=== PATIENT | female | born 1930 | race Caucasian/White ===

== ENCOUNTER 2018-01-28 11:20 | Inpatient (IN) | payer MEDICARE, OTHER ==
[~2018-01-28 11:20] MED LIST: PROPOFOL 200 MG INJ
[2018-01-28 13:23] LABS: ADD MAN DIFF? NO
[2018-01-28 13:33] LABS: BASOPHILS % 0.6 % (0.0-2.0); EOSINOPHILS # 0.1 10^3/ul (0.0-0.5); EOSINOPHILS % 1.2 % (0.0-7.0); HEMATOCRIT 25.5 % (37.0-47.0); LYMPHOCYTES # 1.8 10^3/ul (0.8-2.9); LYMPHOCYTES % 27.5 % (15.0-51.0); MEAN CORPUSCULAR HEMOGLOBIN 30.1 pg (29.0-33.0); MEAN CORPUSCULAR HGB CONC 31.4 g/dl (32.0-37.0); MEAN CORPUSCULAR VOLUME 95.9 fl (82.0-101.0); MEAN PLATELET VOLUME 9.8 fl (7.4-10.4); MONOCYTE # 0.4 10^3/ul (0.3-0.9); MONOCYTES % 6.1 % (0.0-11.0); NEUTROPHIL # 4.1 10^3/ul (1.6-7.5); PLATELET COUNT 303 10^3/UL (140-415); RED BLOOD COUNT 2.66 10^6/ul (4.20-5.40)
[2018-01-28 13:33] LABS: WHITE BLOOD COUNT 6.4 10^3/ul (4.8-10.8)
[2018-01-28 13:34] LABS: POSITIVE DIFF @See below
[2018-01-28 13:38] LABS: HOLD TRANSMISSIONS 1
[2018-01-28 13:44] LABS: ANION GAP 16 (8-16); CARBON DIOXIDE 23 mmol/L (21-31); CHLORIDE 103 mmol/L (97-110); GLUCOSE 90 mg/dl (70-220)
[2018-01-28 13:45] LABS: ALANINE AMINOTRANSFERASE 26 IU/L (13-69); ALBUMIN 3.4 g/dl (3.3-4.9); ALBUMIN/GLOBULIN RATIO 0.94; ALKALINE PHOSPHATASE 134 IU/L (42-121); ASPARTATE AMINO TRANSFERASE 32 IU/L (15-46); BILIRUBIN,INDIRECT 0.1 mg/dl (0-1.1); BILIRUBIN,TOTAL 0.1 mg/dl (0.2-1.3); BLOOD UREA NITROGEN 26 mg/dl (7-20); CALCIUM 9.8 mg/dl (8.4-10.2); SODIUM 136 mmol/L (135-144)
[2018-01-28 13:48] LABS: POTASSIUM 6.3 mmol/L (3.5-5.1)
[2018-01-28 13:49] LABS: INR 0.99; PROTIME 13.2 Sec (11.9-14.9)
[2018-01-28] MEDS: INSULIN REGULAR, HUMAN 100 UNIT/1 ML 3ML VIAL IVP (14:00)
[2018-01-28] MEDS ORDERED: FENTAnyl 50 MCG/ML VIAL (14:15)
[2018-01-28] MEDS ORDERED: ROPIVACAINE 0.5 % 30 ML VIAL (14:15)
[2018-01-28] MEDS ORDERED: hydrALAzine 20 MG INJ (14:49)
[2018-01-28] MEDS ORDERED: PHENYLephrine (100 MCG/ML) 10ML SYG (15:10)
[2018-01-28] MEDS ORDERED: PHENYLephrine 10 MG INJ (15:10)
[2018-01-28] MEDS ORDERED: CEFAZOLIN 1 GM INJ (15:11)
[2018-01-28] MEDS ORDERED: DEXAMETHASONE 4 MG/ML 1 ML INJ (15:26)
[2018-01-28] MEDS ORDERED: ONDANSETRON 4 MG INJ (15:26)
[2018-01-28] MEDS ORDERED: METOCLOPRAMIDE 10 MG INJ (15:26)
[2018-01-28] MEDS ORDERED: DEXTROSE 50% 50 ML SYRINGE (15:39)
[2018-01-28] MEDS ORDERED: SODIUM CL BACTERIOSTATIC 30 ML INJ (15:39)
[2018-01-28] MEDS ORDERED: LABETALOL HCL 20MG INJ IV (16:00)
[2018-01-28] MEDS ORDERED: EPHEDrine SULFATE 50 MG/5 ML SYG IV (16:00)
[2018-01-28] MEDS ORDERED: morphine (1 MG/ML) 10ML SYRINGE IV (16:00)
[2018-01-28] MEDS ORDERED: FENTAnyl 50 MCG/ML VIAL IV ×2 (16:00)
[2018-01-28] MEDS ORDERED: hydrALAzine 20 MG INJ IV (16:00)
[2018-01-28] MEDS ORDERED: ONDANSETRON 4 MG INJ IV (16:00)
[2018-01-28 16:55] LABS: POTASSIUM 4.1 mmol/L (3.5-5.1)
[2018-01-28] MEDS ORDERED: DEXTROSE 50% 50 ML SYRINGE IV ×2 (17:30)
[2018-01-28] MEDS ORDERED: GLUCOSE GEL 15 GRAM TUBE PO ×2 (17:30)
[2018-01-28] MEDS ORDERED: GLUCAGON 1 MG INJ IM (17:30)
[2018-01-28] MEDS ORDERED: GLUCOSE GEL 15 GRAM TUBE BUCCAL (17:30)
[2018-01-28 18:58] LABS: HEMOGLOBIN A1C 5.2 % (0-5.9)
[2018-01-28] MEDS: LATANOPROST 0.005% 2.5 ML OPH BOTH EYES (23:00)
[2018-01-28] MEDS: INSULIN ASPART [NOVOLOG] 3 ML PEN SC ×2 (23:00)
[2018-01-28] MEDS: INSULIN GLARGINE [LANtus] 3 ML PEN SC (23:00)
[2018-01-28] MEDS ORDERED: NACL 0.9% 3 ML SYG IV ×2 (23:00)
[2018-01-28] MEDS: ATORVASTATIN 20 MG TAB PO (23:21)
[2018-01-28] MEDS: GABAPENTIN 100 MG CAP PO (23:21)
[2018-01-29] MEDS: ACCU-CHEK XX (02:00)
[2018-01-29] MEDS: INSULIN ASPART [NOVOLOG] 3 ML PEN SC ×4 (07:59→21:00)
[2018-01-29] MEDS ORDERED: INSULIN GLARGINE [LANtus] 3 ML PEN SC (08:00)
[2018-01-29] MEDS: INSULIN GLARGINE [LANtus] 3 ML PEN SC (08:02)
[2018-01-29 08:54] LABS: ANION GAP 14 (8-16); BLOOD UREA NITROGEN 20 mg/dl (7-20); CALCIUM 8.9 mg/dl (8.4-10.2); CARBON DIOXIDE 25 mmol/L (21-31); CHLORIDE 103 mmol/L (97-110); CREATININE 0.74 mg/dl (0.44-1.00); GLUCOSE 83 mg/dl (70-220); MAGNESIUM 1.8 mg/dl (1.7-2.5); PHOSPHORUS 3.3 mg/dl (2.5-4.9); POTASSIUM 4.6 mmol/L (3.5-5.1); SODIUM 137 mmol/L (135-144)
[2018-01-29] MEDS ORDERED: NON-FORMULARY/PATIENT OWN MED (Clopidogrel Bisulfate (Clopidogrel) 75 MG) PO (09:00)
[2018-01-29] MEDS: ASPIRIN 325 MG TAB GTB (09:11)
[2018-01-29] MEDS: CLOPIDOGREL 75 MG TAB PO (09:11)
[2018-01-29] MEDS: PANTOPRAZOLE (EC) 40 MG TAB PO (09:12)
[2018-01-29] MEDS: LEVOTHYROXINE 75 MCG TAB PO (09:12)
[2018-01-29 10:07] LABS: THYROID STIMULATING HORMONE 0.385 MIU/L (0.465-4.680)
[2018-01-29] MEDS: HYDROCODONE/APAP (5/325) TAB PO (12:15)
[2018-01-29 12:41] LABS: T4 (THYROXINE) 6.7 ug/dl (5.5-11.0)
[2018-01-29 14:42] LABS: FREE T4 (FREE THYROXINE) 1.24 ng/dl (0.85-1.93)
[2018-01-29] MEDS: ATORVASTATIN 20 MG TAB PO (21:27)
[2018-01-29] MEDS: GABAPENTIN 100 MG CAP PO (21:27)
[2018-01-29] MEDS: LATANOPROST 0.005% 2.5 ML OPH BOTH EYES (23:37)
[2018-01-30] MEDS: ACCU-CHEK XX (02:00)
[2018-01-30] MEDS: INSULIN REGULAR, HUMAN 100 UNIT/1 ML 3ML VIAL IVP (07:41)
[2018-01-30] MEDS: INSULIN ASPART [NOVOLOG] 3 ML PEN SC ×4 (07:41→20:54)
[2018-01-30] MEDS: LEVOTHYROXINE 75 MCG TAB PO (08:16)
[2018-01-30] MEDS: ASPIRIN 325 MG TAB GTB (08:16)
[2018-01-30] MEDS: CLOPIDOGREL 75 MG TAB PO (08:17)
[2018-01-30] MEDS: PANTOPRAZOLE (EC) 40 MG TAB PO (08:17)
[2018-01-30] MEDS: INSULIN GLARGINE [LANtus] 3 ML PEN SC (08:21)
[2018-01-30] MEDS: HYDROCODONE/APAP (5/325) TAB PO ×2 (09:22→19:05)
[2018-01-30] MEDS: COLLAGENASE 5 GM (UD JAR) TOP ×2 (15:40→17:14)
[2018-01-30] MEDS: GABAPENTIN 100 MG CAP PO (20:50)
[2018-01-30] MEDS: LATANOPROST 0.005% 2.5 ML OPH BOTH EYES (20:50)
[2018-01-30] MEDS: ATORVASTATIN 20 MG TAB PO (20:50)
[2018-01-31] MEDS: ACCU-CHEK XX (02:00)
[2018-01-31] MEDS: INSULIN ASPART [NOVOLOG] 3 ML PEN SC ×4 (08:04→20:23)
[2018-01-31] MEDS: ASPIRIN 325 MG TAB GTB (08:46)
[2018-01-31] MEDS: CLOPIDOGREL 75 MG TAB PO (08:46)
[2018-01-31] MEDS: INSULIN GLARGINE [LANtus] 3 ML PEN SC (08:55)
[2018-01-31] MEDS: PANTOPRAZOLE (EC) 40 MG TAB PO (09:24)
[2018-01-31] MEDS: LEVOTHYROXINE 75 MCG TAB PO (09:24)
[2018-01-31] MEDS: SENNA TAB PO (18:37)
[2018-01-31] MEDS: HYDROCODONE/APAP (5/325) TAB PO ×2 (18:38→23:43)
[2018-01-31] MEDS: ATORVASTATIN 20 MG TAB PO (20:24)
[2018-01-31] MEDS: LATANOPROST 0.005% 2.5 ML OPH BOTH EYES (20:24)
[2018-01-31] MEDS: GABAPENTIN 100 MG CAP PO (20:25)
[2018-01-31] MEDS: POLYETHYLENE GLYCOL 17 GM PACKET PO (20:25)
[2018-02-01] MEDS: ACCU-CHEK XX (01:52)
[2018-02-01] MEDS: INSULIN ASPART [NOVOLOG] 3 ML PEN SC ×4 (08:15→21:34)
[2018-02-01] MEDS: PANTOPRAZOLE (EC) 40 MG TAB PO (08:17)
[2018-02-01] MEDS: ASPIRIN 325 MG TAB GTB (08:17)
[2018-02-01] MEDS: LEVOTHYROXINE 75 MCG TAB PO (08:17)
[2018-02-01] MEDS: CLOPIDOGREL 75 MG TAB PO (08:18)
[2018-02-01] MEDS: POLYETHYLENE GLYCOL 17 GM PACKET PO ×2 (08:18→21:00)
[2018-02-01] MEDS: COLLAGENASE 5 GM (UD JAR) TOP (08:19)
[2018-02-01] MEDS: INSULIN GLARGINE [LANtus] 3 ML PEN SC (08:56)
[2018-02-01] MEDS: HYDROCODONE/APAP (5/325) TAB PO (09:17)
[2018-02-01 12:05] LABS: ADD MAN DIFF? NO
[2018-02-01 12:07] LABS: WHITE BLOOD COUNT 5.7 10^3/ul (4.8-10.8)
[2018-02-01 12:07] LABS: ABNORMAL IP MESSAGE 1; BASOPHILS % 0.4 % (0.0-2.0); EOSINOPHILS # 0.1 10^3/ul (0.0-0.5); EOSINOPHILS % 2.3 % (0.0-7.0); HEMATOCRIT 18.6 % (37.0-47.0); LYMPHOCYTES # 1.6 10^3/ul (0.8-2.9); LYMPHOCYTES % 27.4 % (15.0-51.0); MEAN CORPUSCULAR HEMOGLOBIN 29.7 pg (29.0-33.0); MEAN CORPUSCULAR HGB CONC 31.2 g/dl (32.0-37.0); MEAN CORPUSCULAR VOLUME 95.4 fl (82.0-101.0); MEAN PLATELET VOLUME 9.8 fl (7.4-10.4); MONOCYTE # 0.4 10^3/ul (0.3-0.9); MONOCYTES % 7.7 % (0.0-11.0); NEUTROPHIL # 3.5 10^3/ul (1.6-7.5); NEUTROPHILS % 61.8 % (39.0-77.0); PLATELET COUNT 230 10^3/UL (140-415); RED BLOOD COUNT 1.95 10^6/ul (4.20-5.40); RED CELL DISTRIBUTION WIDTH 14.6 % (11.5-14.5)
[2018-02-01 12:21] LABS: HEMOGLOBIN 5.8 g/dl (12.0-16.0); POSITIVE DIFF @See below
[2018-02-01 15:24] LABS: HEMATOCRIT 20.4 % (37.0-47.0)
[2018-02-01] MEDS: NA PHOSPHATE/BIPHOS 133 ML ENEMA PR (15:27)
[2018-02-01 15:35] LABS: HEMOGLOBIN 6.3 g/dl (12.0-16.0)
[2018-02-01 21:03] LABS: HEMATOCRIT 20.7 % (37.0-47.0)
[2018-02-01 21:09] LABS: HEMOGLOBIN 6.5 g/dl (12.0-16.0)
[2018-02-01] MEDS: ATORVASTATIN 20 MG TAB PO (21:29)
[2018-02-01] MEDS: GABAPENTIN 100 MG CAP PO (21:30)
[2018-02-01] MEDS: LATANOPROST 0.005% 2.5 ML OPH BOTH EYES (21:46)
[2018-02-01 22:34] LABS: IMMEDIATE SPIN CROSSMATCH 1 1
[2018-02-01] MEDS: ACETAMINOPHEN 325 MG TAB PO (22:49)
[2018-02-02] MEDS: SOD CHLORIDE 0.9% 250 ML IV* (00:32)
[2018-02-02] MEDS: ACCU-CHEK XX (02:05)
[2018-02-02 06:44] LABS: ADD MAN DIFF? NO
[2018-02-02 06:50] LABS: WHITE BLOOD COUNT 5.9 10^3/ul (4.8-10.8)
[2018-02-02 06:50] LABS: BASOPHILS % 0.7 % (0.0-2.0); EOSINOPHILS # 0.2 10^3/ul (0.0-0.5); EOSINOPHILS % 2.7 % (0.0-7.0); LYMPHOCYTES # 1.6 10^3/ul (0.8-2.9); LYMPHOCYTES % 27.3 % (15.0-51.0); MEAN CORPUSCULAR HEMOGLOBIN 32.1 pg (29.0-33.0); MEAN CORPUSCULAR HGB CONC 33.3 g/dl (32.0-37.0); MEAN CORPUSCULAR VOLUME 96.4 fl (82.0-101.0); MEAN PLATELET VOLUME 10.1 fl (7.4-10.4); MONOCYTE # 0.5 10^3/ul (0.3-0.9); MONOCYTES % 9.2 % (0.0-11.0); NEUTROPHIL # 3.5 10^3/ul (1.6-7.5); NEUTROPHILS % 59.8 % (39.0-77.0); PLATELET COUNT 239 10^3/UL (140-415); RED CELL DISTRIBUTION WIDTH 14.5 % (11.5-14.5)
[2018-02-02 07:02] LABS: POSITIVE DIFF @See below
[2018-02-02 07:18] LABS: OCCULT BLOOD STOOL NEGATIVE (NEGATIVE)
[2018-02-02] MEDS: INSULIN GLARGINE [LANtus] 3 ML PEN SC (08:05)
[2018-02-02] MEDS: INSULIN ASPART [NOVOLOG] 3 ML PEN SC ×4 (08:15→21:26)
[2018-02-02] MEDS: LEVOTHYROXINE 75 MCG TAB PO (08:18)
[2018-02-02] MEDS: PANTOPRAZOLE (EC) 40 MG TAB PO (08:18)
[2018-02-02] MEDS: COLLAGENASE 5 GM (UD JAR) TOP (08:51)
[2018-02-02] MEDS: hydrALAzine 20 MG INJ IV (09:33)
[2018-02-02] MEDS: HYDROCODONE/APAP (5/325) TAB PO ×2 (09:48→21:15)
[2018-02-02] MEDS: POLYETHYLENE GLYCOL 17 GM PACKET PO ×2 (10:07→21:19)
[2018-02-02 10:42] LABS: HEMOGLOBIN 9.9 g/dl (12.0-16.0)
[2018-02-02 15:15] LABS: HEMATOCRIT 29.4 % (37.0-47.0); HEMOGLOBIN 9.5 g/dl (12.0-16.0)
[2018-02-02] MEDS: GABAPENTIN 100 MG CAP PO (21:13)
[2018-02-02] MEDS: ATORVASTATIN 20 MG TAB PO (21:13)
[2018-02-02] MEDS: LATANOPROST 0.005% 2.5 ML OPH BOTH EYES (21:13)
[2018-02-03] MEDS: ACCU-CHEK XX (02:30)
[2018-02-03] MEDS: INSULIN ASPART [NOVOLOG] 3 ML PEN SC ×2 (07:59→12:15)
[2018-02-03] MEDS: POLYETHYLENE GLYCOL 17 GM PACKET PO (08:07)
[2018-02-03] MEDS: PANTOPRAZOLE (EC) 40 MG TAB PO (08:08)
[2018-02-03] MEDS: HYDROCODONE/APAP (5/325) TAB PO ×2 (08:08→16:28)
[2018-02-03] MEDS: COLLAGENASE 5 GM (UD JAR) TOP (08:09)
[2018-02-03] MEDS: LEVOTHYROXINE 75 MCG TAB PO (08:09)
[2018-02-03] MEDS: INSULIN GLARGINE [LANtus] 3 ML PEN SC (08:13)
[2018-02-03] MEDS ORDERED: VITAMIN A & D 5 GM OINT PACKET TOP (08:21)
== END 2018-02-03 16:40 | disposition home health service (06) | DRG 255 ==
LOC: SDS 11:20 → MS2 01-29 18:45 → MS4 21:15 → MS2 01-29 20:45 → SDS 23:46 → MS4 23:10
PROVIDERS: Internal Medicine
PROC: 0Y6Q0Z0 Detachment at Left 1st Toe, Complete, Open Approach (ICD-10-PCS; principal; 2018-01-28 13:30)
PROC: 0Y6W0Z0 Detachment at Left 4th Toe, Complete, Open Approach (ICD-10-PCS; 2018-01-28 13:30)
PROC: 0Y6U0Z0 Detachment at Left 3rd Toe, Complete, Open Approach (ICD-10-PCS; 2018-01-28 13:30)
PROC: 0Y6S0Z0 Detachment at Left 2nd Toe, Complete, Open Approach (ICD-10-PCS; 2018-01-28 13:30)
PROC: 30233N1 Transfusion of Nonautologous Red Blood Cells into Peripheral Vein, Percutaneous Approach (ICD-10-PCS; 2018-01-28 14:35)
DX: E11.52 Type 2 diabetes mellitus with diabetic peripheral angiopathy with gangrene (principal); L89.153 Pressure ulcer of sacral region, stage 3; I96 Gangrene, not elsewhere classified; E44.0 Moderate protein-calorie malnutrition; Z68.1 Body mass index [BMI] 19.9 or less, adult; I10 Essential (primary) hypertension; E03.9 Hypothyroidism, unspecified; K21.9 Gastro-esophageal reflux disease without esophagitis; H40.9 Unspecified glaucoma; D64.9 Anemia, unspecified; E78.00 Pure hypercholesterolemia, unspecified; E87.5 Hyperkalemia
CPT/HCPCS: 36430; 71045; 80048; 80053; 82270; 82962; 83036; 83735; 84100; 84132; 84436; 84439; 84443; 85014; 85018; 85025; 85610; 85730; 86850; 86900; 86901; 86920; 88305; 88311; 93005; 97110; 97162; 97530

== ENCOUNTER 2018-02-25 16:28 | Inpatient (IN) | payer MEDICARE, OTHER ==
[2018-02-25 20:20] LABS: ADD UMIC YES; UR ASCORBIC ACID 40 mg/dL (NEGATIVE); UR BACTERIA MODERATE /HPF (NONE SEEN); UR BILIRUBIN (Dip) NEGATIVE (NEGATIVE); UR BLOOD (Dip) NEGATIVE (NEGATIVE); UR CLARITY CLOUDY (CLEAR); UR COLOR YELLOW (YELLOW); UR GLUCOSE (Dip) NEGATIVE (NEGATIVE); UR KETONES (Dip) NEGATIVE (NEGATIVE); UR LEUKOCYTE ESTERASE (Dip) 3+ Leu/ul (NEGATIVE); UR NITRITE (Dip) POSITIVE (NEGATIVE); UR RBC 1 /HPF (0-5); UR SPECIFIC GRAVITY (Dip) 1.009 (1.003-1.030); UR TOTAL PROTEIN (Dip) NEGATIVE (NEGATIVE); UR UROBILINOGEN (Dip) NEGATIVE (NEGATIVE); UR WBC > 182 /HPF (0-5)
[2018-02-25] MEDS: NA PHOSPHATE/BIPHOS 133 ML ENEMA PR (20:26)
[2018-02-25] MEDS: SOD CHLORIDE 0.9% 500 ML IV (20:26)
[2018-02-25 20:31] LABS: ADD MAN DIFF? NO
[2018-02-25 20:32] LABS: BASOPHILS % 0.4 % (0.0-2.0); EOSINOPHILS # 0.1 10^3/ul (0.0-0.5); EOSINOPHILS % 1.4 % (0.0-7.0); HEMATOCRIT 27.8 % (37.0-47.0); HEMOGLOBIN 8.6 g/dl (12.0-16.0); LYMPHOCYTES # 1.7 10^3/ul (0.8-2.9); LYMPHOCYTES % 19.4 % (15.0-51.0); MEAN CORPUSCULAR HEMOGLOBIN 29.4 pg (29.0-33.0); MEAN CORPUSCULAR HGB CONC 30.9 g/dl (32.0-37.0); MEAN CORPUSCULAR VOLUME 94.9 fl (82.0-101.0); MEAN PLATELET VOLUME 9.2 fl (7.4-10.4); MONOCYTE # 0.7 10^3/ul (0.3-0.9); MONOCYTES % 7.2 % (0.0-11.0); NEUTROPHIL # 6.4 10^3/ul (1.6-7.5); PLATELET COUNT 319 10^3/UL (140-415); RED BLOOD COUNT 2.93 10^6/ul (4.20-5.40); RED CELL DISTRIBUTION WIDTH 13.6 % (11.5-14.5)
[2018-02-25 20:51] LABS: ALANINE AMINOTRANSFERASE 25 IU/L (13-69); ALBUMIN 3.4 g/dl (3.3-4.9); ALKALINE PHOSPHATASE 107 IU/L (42-121); ANION GAP 12 (8-16); ASPARTATE AMINO TRANSFERASE 38 IU/L (15-46); BILIRUBIN,INDIRECT 0.1 mg/dl (0-1.1); BILIRUBIN,TOTAL 0.1 mg/dl (0.2-1.3); BLOOD UREA NITROGEN 30 mg/dl (7-20); CALCIUM 9.3 mg/dl (8.4-10.2); CARBON DIOXIDE 26 mmol/L (21-31); CHLORIDE 95 mmol/L (97-110); GLUCOSE 109 mg/dl (70-220); POTASSIUM 5.1 mmol/L (3.5-5.1); SODIUM 128 mmol/L (135-144); TOTAL PROTEIN 7.6 g/dl (6.1-8.1)
[2018-02-25] MEDS ORDERED: ONDANSETRON 4 MG INJ IV (22:00)
[2018-02-25] MEDS ORDERED: ACETAMINOPHEN 325 MG TAB PO (22:00)
[2018-02-25] MEDS: CEFTRIAXONE 1 GM/50 ML (PMX) 50 ML IVPB (22:38)
[2018-02-26] MEDS ORDERED: GLUCAGON 1 MG INJ IM (01:30)
[2018-02-26] MEDS ORDERED: ONDANSETRON 4 MG INJ IV (01:30)
[2018-02-26] MEDS ORDERED: GLUCOSE GEL 15 GRAM TUBE BUCCAL (01:30)
[2018-02-26] MEDS ORDERED: GLUCOSE GEL 15 GRAM TUBE PO ×2 (01:30)
[2018-02-26] MEDS ORDERED: DEXTROSE 50% 50 ML SYRINGE IV ×2 (01:30)
[2018-02-26] MEDS: HYDROCODONE/APAP (5/325) TAB PO ×2 (01:51→18:42)
[2018-02-26] MEDS: DEXTROSE 5%-0.45% NACL 1,000 ML IV (01:57)
[2018-02-26] MEDS: DEXTROSE 5%-0.9% NACL 1,000 ML IV (03:10)
[2018-02-26] MEDS ORDERED: PENDING SANTYL ORDER FOR WOUND CARE XX (03:30)
[2018-02-26 05:00] LABS: ADD MAN DIFF? NO
[2018-02-26] MEDS: INSULIN ASPART [NOVOLOG] 3 ML PEN SC ×5 (05:00→21:00)
[2018-02-26 05:03] LABS: WHITE BLOOD COUNT 6.8 10^3/ul (4.8-10.8)
[2018-02-26 05:03] LABS: BASOPHILS % 0.4 % (0.0-2.0); EOSINOPHILS % 0.6 % (0.0-7.0); HEMATOCRIT 27.5 % (37.0-47.0); HEMOGLOBIN 8.6 g/dl (12.0-16.0); LYMPHOCYTES # 1.4 10^3/ul (0.8-2.9); LYMPHOCYTES % 20.4 % (15.0-51.0); MEAN CORPUSCULAR HEMOGLOBIN 30.2 pg (29.0-33.0); MEAN CORPUSCULAR HGB CONC 31.3 g/dl (32.0-37.0); MEAN CORPUSCULAR VOLUME 96.5 fl (82.0-101.0); MEAN PLATELET VOLUME 9.5 fl (7.4-10.4); MONOCYTE # 0.5 10^3/ul (0.3-0.9); MONOCYTES % 7.6 % (0.0-11.0); NEUTROPHIL # 4.8 10^3/ul (1.6-7.5); NEUTROPHILS % 70.4 % (39.0-77.0); PLATELET COUNT 271 10^3/UL (140-415); RED BLOOD COUNT 2.85 10^6/ul (4.20-5.40); RED CELL DISTRIBUTION WIDTH 13.7 % (11.5-14.5)
[2018-02-26 05:28] LABS: IRON 37 ug/dl (35-150)
[2018-02-26 05:31] LABS: ALANINE AMINOTRANSFERASE 24 IU/L (13-69); ALBUMIN 2.9 g/dl (3.3-4.9); ALBUMIN/GLOBULIN RATIO 0.82; ALKALINE PHOSPHATASE 86 IU/L (42-121); ANION GAP 10 (8-16); ASPARTATE AMINO TRANSFERASE 33 IU/L (15-46); BILIRUBIN,INDIRECT 0.2 mg/dl (0-1.1); BILIRUBIN,TOTAL 0.2 mg/dl (0.2-1.3); BLOOD UREA NITROGEN 24 mg/dl (7-20); CALCIUM 8.6 mg/dl (8.4-10.2); CARBON DIOXIDE 26 mmol/L (21-31); CHLORIDE 105 mmol/L (97-110); GLUCOSE 111 mg/dl (70-220); PHOSPHORUS 4.6 mg/dl (2.5-4.9); POTASSIUM 4.2 mmol/L (3.5-5.1); SODIUM 137 mmol/L (135-144); TOTAL PROTEIN 6.4 g/dl (6.1-8.1)
[2018-02-26 05:38] LABS: % IRON SATURATION 14 % SAT (22-52); TOTAL IRON BINDING CAPACITY 266 ug/dl (241-421)
[2018-02-26 05:51] LABS: THYROID STIMULATING HORMONE 0.314 MIU/L (0.465-4.680)
[2018-02-26 05:55] LABS: FERRITIN 46.8 ng/ml (11.1-264.0)
[2018-02-26] MEDS: PANTOPRAZOLE (EC) 40 MG TAB PO (06:12)
[2018-02-26] MEDS: LEVOTHYROXINE 75 MCG TAB PO (06:16)
[2018-02-26] MEDS ORDERED: INSULIN ASPART [NOVOLOG] 3 ML PEN SC (07:50)
[2018-02-26 09:10] LABS: OCCULT BLOOD STOOL NEGATIVE (NEGATIVE)
[2018-02-26 16:52] LABS: T4 (THYROXINE) 6.8 ug/dl (5.5-11.0)
[2018-02-26 16:53] LABS: FREE T4 (FREE THYROXINE) 1.58 ng/dl (0.85-1.93)
[2018-02-26 17:06] LABS: THYROID STIMULATING HORMONE 0.248 MIU/L (0.465-4.680)
[2018-02-26] MEDS: SENNA TAB PO (21:11)
[2018-02-26] MEDS: CEFTRIAXONE 1 GM/50 ML (PMX) 50 ML IVPB (21:11)
[2018-02-26] MEDS: ATORVASTATIN 20 MG TAB PO (21:11)
[2018-02-26] MEDS: LATANOPROST 0.005% 2.5 ML OPH BOTH EYES (21:17)
[2018-02-27] MEDS: HYDROCODONE/APAP (5/325) TAB PO ×2 (02:18→08:29)
[2018-02-27 05:40] LABS: ADD MAN DIFF? NO; BASOPHILS % 0.5 % (0.0-2.0); EOSINOPHILS # 0.1 10^3/ul (0.0-0.5); HEMATOCRIT 24.7 % (37.0-47.0); HEMOGLOBIN 7.6 g/dl (12.0-16.0); LYMPHOCYTES # 1.4 10^3/ul (0.8-2.9); LYMPHOCYTES % 22.6 % (15.0-51.0); MEAN CORPUSCULAR HEMOGLOBIN 29.6 pg (29.0-33.0); MEAN CORPUSCULAR HGB CONC 30.8 g/dl (32.0-37.0); MEAN CORPUSCULAR VOLUME 96.1 fl (82.0-101.0); MEAN PLATELET VOLUME 9.7 fl (7.4-10.4); MONOCYTE # 0.5 10^3/ul (0.3-0.9); MONOCYTES % 8.3 % (0.0-11.0); NEUTROPHILS % 66.1 % (39.0-77.0); PLATELET COUNT 243 10^3/UL (140-415); RED BLOOD COUNT 2.57 10^6/ul (4.20-5.40)
[2018-02-27] MEDS: PANTOPRAZOLE (EC) 40 MG TAB PO (06:17)
[2018-02-27] MEDS: LEVOTHYROXINE 75 MCG TAB PO (06:17)
[2018-02-27 06:19] LABS: ANION GAP 8 (8-16); BLOOD UREA NITROGEN 15 mg/dl (7-20); CALCIUM 8.5 mg/dl (8.4-10.2); CARBON DIOXIDE 23 mmol/L (21-31); CHLORIDE 110 mmol/L (97-110); CREATININE 0.65 mg/dl (0.44-1.00); GLUCOSE 96 mg/dl (70-220); MAGNESIUM 1.7 mg/dl (1.7-2.5); PHOSPHORUS 3.1 mg/dl (2.5-4.9); POTASSIUM 4.1 mmol/L (3.5-5.1); SODIUM 137 mmol/L (135-144)
[2018-02-27] MEDS: INSULIN ASPART [NOVOLOG] 3 ML PEN SC ×4 (07:50→20:55)
[2018-02-27] MEDS: BALSAM PERU/CASTOR OIL 60 GM TUBE TOP (08:26)
[2018-02-27] MEDS: COLLAGENASE 5 GM (UD JAR) TOP (08:26)
[2018-02-27] MEDS: LATANOPROST 0.005% 2.5 ML OPH BOTH EYES (20:54)
[2018-02-27] MEDS: NITROFURANTOIN (SR) 100 MG CAP PO (20:54)
[2018-02-27] MEDS: ATORVASTATIN 20 MG TAB PO (20:54)
[2018-02-27] MEDS: SENNA TAB PO (20:54)
[2018-02-28] MEDS: LEVOTHYROXINE 75 MCG TAB PO (05:31)
[2018-02-28] MEDS: PANTOPRAZOLE (EC) 40 MG TAB PO (05:31)
[2018-02-28] MEDS: INSULIN ASPART [NOVOLOG] 3 ML PEN SC ×4 (07:50→21:00)
[2018-02-28] MEDS: NITROFURANTOIN (SR) 100 MG CAP PO ×2 (08:04→21:10)
[2018-02-28] MEDS: BALSAM PERU/CASTOR OIL 60 GM TUBE TOP (08:05)
[2018-02-28] MEDS: COLLAGENASE 5 GM (UD JAR) TOP (08:05)
[2018-02-28 14:29] LABS: HEMATOCRIT 28.3 % (37.0-47.0)
[2018-02-28] MEDS: HYDROCODONE/APAP (5/325) TAB PO ×2 (14:58→21:33)
[2018-02-28] MEDS: SOD CHLORIDE 0.45% 1,000 ML IV (17:08)
[2018-02-28] MEDS: CEFOTAXIME 2 GM/50 ML (PMX) 50 ML IVPB (18:11)
[2018-02-28] MEDS: ATORVASTATIN 20 MG TAB PO (21:10)
[2018-02-28] MEDS: SENNA TAB PO (21:11)
[2018-02-28] MEDS: LATANOPROST 0.005% 2.5 ML OPH BOTH EYES (21:32)
[2018-03-01] MEDS: CEFOTAXIME 2 GM/50 ML (PMX) 50 ML IVPB ×3 (00:31→15:25)
[2018-03-01] MEDS: PANTOPRAZOLE (EC) 40 MG TAB PO (05:47)
[2018-03-01] MEDS: LEVOTHYROXINE 75 MCG TAB PO (05:47)
[2018-03-01] MEDS: SOD CHLORIDE 0.45% 1,000 ML IV ×2 (07:18→12:40)
[2018-03-01] MEDS: INSULIN ASPART [NOVOLOG] 3 ML PEN SC ×2 (07:50→12:43)
[2018-03-01] MEDS: NITROFURANTOIN (SR) 100 MG CAP PO (09:25)
[2018-03-01] MEDS: COLLAGENASE 5 GM (UD JAR) TOP (09:26)
[2018-03-01] MEDS: BALSAM PERU/CASTOR OIL 60 GM TUBE TOP (09:26)
[2018-03-01] MEDS: HYDROCODONE/APAP (5/325) TAB PO (14:47)
== END 2018-03-01 17:00 | disposition home or self-care (01) | DRG 673 ==
LOC: E/R 16:28 → MS1 21:35
PROC: 0JBR0ZZ Excision of Left Foot Subcutaneous Tissue and Fascia, Open Approach (ICD-10-PCS; principal; 2018-02-25)
DX: N30.00 Acute cystitis without hematuria (principal); G93.40 Encephalopathy, unspecified; E87.1 Hypo-osmolality and hyponatremia; E86.0 Dehydration; D64.9 Anemia, unspecified; E11.9 Type 2 diabetes mellitus without complications; E03.9 Hypothyroidism, unspecified; E78.5 Hyperlipidemia, unspecified; I69.320 Aphasia following cerebral infarction; K59.00 Constipation, unspecified; I10 Essential (primary) hypertension; I25.10 Atherosclerotic heart disease of native coronary artery without angina pectoris; K21.9 Gastro-esophageal reflux disease without esophagitis; Z79.4 Long term (current) use of insulin; Z79.82 Long term (current) use of aspirin; Z95.5 Presence of coronary angioplasty implant and graft
CPT/HCPCS: 11042; 11045; 36415; 70450; 80048; 80053; 81001; 82270; 82728; 82962; 83540; 83735; 84100; 84436; 84439; 84443; 85014; 85018; 85025; 87086; 92610; 97163; 97606; 99285-25

== ENCOUNTER 2018-05-20 16:44 | Inpatient (IN) | payer MEDICARE, OTHER ==
[2018-05-20 19:19] LABS: WHITE BLOOD COUNT 30.7 10^3/ul (4.8-10.8)
[2018-05-20 19:19] LABS: ABNORMAL IP MESSAGE 1; MEAN CORPUSCULAR HEMOGLOBIN 28.8 pg (29.0-33.0); MEAN CORPUSCULAR HGB CONC 30.9 g/dl (32.0-37.0); MEAN CORPUSCULAR VOLUME 93.2 fl (82.0-101.0); MEAN PLATELET VOLUME 9.7 fl (7.4-10.4); PLATELET COUNT 263 10^3/UL (140-415); RED BLOOD COUNT 2.36 10^6/ul (4.20-5.40); RED CELL DISTRIBUTION WIDTH 17.6 % (11.5-14.5)
[2018-05-20 19:25] LABS: HEMOGLOBIN 6.8 g/dl (12.0-16.0)
[2018-05-20] MEDS: CEFTRIAXONE 1 GM/50 ML (PMX) 50 ML IVPB (19:25)
[2018-05-20] MEDS: PANTOPRAZOLE 40 MG INJ IV (19:25)
[2018-05-20 19:26] LABS: ADD MAN DIFF? YES; POSITIVE DIFF @See below
[2018-05-20] MEDS: SODIUM CHLORIDE 0.9% 1L BAG IV* (19:26)
[2018-05-20 19:30] LABS: PATH REVIEW? YES
[2018-05-20] MEDS ORDERED: VANCOMYCIN 1 GM (PMX) 250 ML IVPB (19:30)
[2018-05-20 19:38] LABS: ALANINE AMINOTRANSFERASE 37 IU/L (13-69); ALBUMIN 2.7 g/dl (3.3-4.9); ALBUMIN/GLOBULIN RATIO 0.65; ALKALINE PHOSPHATASE 106 IU/L (42-121); ASPARTATE AMINO TRANSFERASE 63 IU/L (15-46); BILIRUBIN,INDIRECT 0.5 mg/dl (0-1.1); BILIRUBIN,TOTAL 0.5 mg/dl (0.2-1.3); BLOOD UREA NITROGEN 36 mg/dl (7-20); CALCIUM 9.4 mg/dl (8.4-10.2); CARBON DIOXIDE 28 mmol/L (21-31); CHLORIDE 99 mmol/L (97-110); CREATININE 0.74 mg/dl (0.44-1.00); GLUCOSE 162 mg/dl (70-220); LIPASE 10 U/L (23-300); POTASSIUM 4.9 mmol/L (3.5-5.1); SODIUM 132 mmol/L (135-144); TOTAL PROTEIN 6.8 g/dl (6.1-8.1)
[2018-05-20 19:49] LABS: TROPONIN-I < 0.012 ng/ml (0.000-0.120)
[2018-05-20 19:54] LABS: INR 1.07; PT RATIO 1.1
[2018-05-20 19:55] LABS: PARTIAL THROMBOPLASTIN TIME 34.6 Sec (23.0-35.0)
[2018-05-20] MEDS ORDERED: ONDANSETRON 4 MG INJ IV (20:30)
[2018-05-20] MEDS ORDERED: ACETAMINOPHEN 325 MG TAB PO (20:30)
[2018-05-20] MEDS ORDERED: NACL 0.9% 3 ML SYG IV (20:30)
[2018-05-20] MEDS ORDERED: VANCOMYCIN IV PER PHARMACY XX (20:30)
[2018-05-20 20:36] LABS: IMMEDIATE SPIN CROSSMATCH 1 1
[2018-05-20 20:45] LABS: ANISOCYTOSIS 1+ (0-0); BAND NEUTROPHILS #M 12.2 10^3/ul (0.0-0.6); BAND NEUTROPHILS % (M) 40 % (0-4); LYMPHOCYTES #M 0.9 10^3/ul (0.8-2.9); LYMPHOCYTES % (M) 3 % (15-51); MONOCYTE #M 0.3 10^3/ul (0.3-0.9); MONOCYTES % (M) 1 % (0-11); PLATELET MORPHOLOGY COMMENT @See below; POLYCHROMASIA 1+ (0-0); SEG NEUT #M 20.9 10^3/ul (1.6-7.5); SEGMENTED NEUTROPHILS (M) % 56 % (39-77); SMUDGE%M 5 % (0-0)
[2018-05-20] MEDS: PIPER-TAZO 3.375 GM IV (PMX) 100 ML IVPB (21:00)
[2018-05-20] MEDS: SOD CHLORIDE 0.9% 500 ML IV (21:01)
[2018-05-20] MEDS: SOD CHLORIDE 0.9% 250 ML IV (22:42)
[2018-05-20 23:17] LABS: LACTIC ACID 2.8 mmol/L (0.5-2.0)
[2018-05-20] MEDS: VANCOMYCIN 750 MG in SOD CHLORIDE 0.9% 150 ML IVPB (23:37)
[2018-05-20] MEDS: SOD CHLORIDE 0.9% 950 ML IV (23:37)
[2018-05-21] MEDS ORDERED: PENDING SANTYL ORDER FOR WOUND CARE XX (02:00)
[2018-05-21] MEDS: PIPER-TAZO 3.375 GM IV (PMX) 100 ML IVPB ×4 (02:00→17:42)
[2018-05-21] MEDS: HYDROCODONE/APAP (5/325) TAB PO ×3 (04:30→21:50)
[2018-05-21] MEDS: SOD CHLORIDE 0.9% 1,000 ML IV ×2 (04:36→21:28)
[2018-05-21] MEDS: LEVOTHYROXINE 100 MCG VIAL IV (05:33)
[2018-05-21] MEDS: PANTOPRAZOLE 40 MG INJ IV ×2 (05:33→17:41)
[2018-05-21 07:57] LABS: ALANINE AMINOTRANSFERASE 41 IU/L (13-69); ALBUMIN 2.2 g/dl (3.3-4.9); ALBUMIN/GLOBULIN RATIO 0.66; ALKALINE PHOSPHATASE 87 IU/L (42-121); ANION GAP 6 (5-13); ASPARTATE AMINO TRANSFERASE 46 IU/L (15-46); BILIRUBIN,INDIRECT 0.8 mg/dl (0-1.1); BILIRUBIN,TOTAL 0.8 mg/dl (0.2-1.3); BLOOD UREA NITROGEN 26 mg/dl (7-20); CARBON DIOXIDE 22 mmol/L (21-31); CHLORIDE 111 mmol/L (97-110); CREATININE 0.57 mg/dl (0.44-1.00); GLUCOSE 97 mg/dl (70-220); MAGNESIUM 1.8 mg/dl (1.7-2.5); POTASSIUM 3.8 mmol/L (3.5-5.1); SODIUM 139 mmol/L (135-144); TOTAL PROTEIN 5.5 g/dl (6.1-8.1)
[2018-05-21 08:17] LABS: HEMOGLOBIN A1C 5.9 % (0-5.9)
[2018-05-21 08:22] LABS: ADD UMIC YES; UR ASCORBIC ACID NEGATIVE (NEGATIVE); UR BACTERIA FEW /HPF (NONE SEEN); UR BILIRUBIN (Dip) NEGATIVE (NEGATIVE); UR BLOOD (Dip) 1+ mg/dL (NEGATIVE); UR CLARITY TURBID (CLEAR); UR COLOR AMBER (YELLOW); UR GLUCOSE (Dip) NEGATIVE (NEGATIVE); UR KETONES (Dip) NEGATIVE (NEGATIVE); UR LEUKOCYTE ESTERASE (Dip) 3+ Leu/ul (NEGATIVE); UR NITRITE (Dip) NEGATIVE (NEGATIVE); UR RBC 7 /HPF (0-5); UR SPECIFIC GRAVITY (Dip) 1.021 (1.003-1.030); UR TOTAL PROTEIN (Dip) 1+ mg/dl (NEGATIVE); UR UROBILINOGEN (Dip) NEGATIVE (NEGATIVE); UR WBC > 182 /HPF (0-5)
[2018-05-21 10:09] LABS: ADD MAN DIFF? NO
[2018-05-21 10:13] LABS: ANION GAP 5 (5-13)
[2018-05-21 10:15] LABS: BASOPHILS % 0.1 % (0.0-2.0); EOSINOPHILS % 0.1 % (0.0-7.0); HEMOGLOBIN 7.3 g/dl (12.0-16.0); LYMPHOCYTES # 0.8 10^3/ul (0.8-2.9); LYMPHOCYTES % 4.9 % (15.0-51.0); MEAN CORPUSCULAR HEMOGLOBIN 29.6 pg (29.0-33.0); MEAN CORPUSCULAR HGB CONC 31.7 g/dl (32.0-37.0); MEAN CORPUSCULAR VOLUME 93.1 fl (82.0-101.0); MEAN PLATELET VOLUME 9.8 fl (7.4-10.4); MONOCYTE # 0.6 10^3/ul (0.3-0.9); MONOCYTES % 3.5 % (0.0-11.0); NEUTROPHIL # 14.3 10^3/ul (1.6-7.5); NEUTROPHILS % 90.6 % (39.0-77.0); PLATELET COUNT 200 10^3/UL (140-415); RED BLOOD COUNT 2.47 10^6/ul (4.20-5.40); RED CELL DISTRIBUTION WIDTH 16.9 % (11.5-14.5)
[2018-05-21 10:15] LABS: WHITE BLOOD COUNT 15.8 10^3/ul (4.8-10.8)
[2018-05-21 10:42] LABS: IRON 12 ug/dl (35-150)
[2018-05-21 10:51] LABS: % IRON SATURATION 4 % SAT (22-52); TOTAL IRON BINDING CAPACITY 288 ug/dl (241-421)
[2018-05-21 11:17] LABS: FERRITIN 65.9 ng/ml (11.1-264.0)
[2018-05-21] MEDS: SUCRALFATE (100 MG/ML) 10ML CUP PO ×2 (17:41→21:28)
[2018-05-21] MEDS: VANCOMYCIN 500MG/NS (PMX) 100 ML IVPB (21:29)
[2018-05-22] MEDS: PIPER-TAZO 3.375 GM IV (PMX) 100 ML IVPB ×4 (01:52→17:03)
[2018-05-22] MEDS: hydrALAzine 20 MG INJ IV (03:58)
[2018-05-22] MEDS: LEVOTHYROXINE 100 MCG VIAL IV (05:26)
[2018-05-22] MEDS: HYDROCODONE/APAP (5/325) TAB PO ×3 (05:26→22:36)
[2018-05-22] MEDS: PANTOPRAZOLE 40 MG INJ IV ×2 (05:26→17:04)
[2018-05-22 06:13] LABS: ADD MAN DIFF? NO
[2018-05-22 06:17] LABS: BASOPHILS % 0.3 % (0.0-2.0); EOSINOPHILS # 0.1 10^3/ul (0.0-0.5); EOSINOPHILS % 0.9 % (0.0-7.0); HEMOGLOBIN 7.7 g/dl (12.0-16.0); LYMPHOCYTES % 8.9 % (15.0-51.0); MEAN CORPUSCULAR HEMOGLOBIN 28.6 pg (29.0-33.0); MEAN CORPUSCULAR HGB CONC 30.8 g/dl (32.0-37.0); MEAN CORPUSCULAR VOLUME 92.9 fl (82.0-101.0); MEAN PLATELET VOLUME 9.7 fl (7.4-10.4); MONOCYTE # 0.4 10^3/ul (0.3-0.9); MONOCYTES % 3.8 % (0.0-11.0); NEUTROPHIL # 9.6 10^3/ul (1.6-7.5); NEUTROPHILS % 85.7 % (39.0-77.0); PLATELET COUNT 234 10^3/UL (140-415); RED BLOOD COUNT 2.69 10^6/ul (4.20-5.40); RED CELL DISTRIBUTION WIDTH 16.8 % (11.5-14.5)
[2018-05-22 06:17] LABS: WHITE BLOOD COUNT 11.2 10^3/ul (4.8-10.8)
[2018-05-22] MEDS: SOD CHLORIDE 0.9% 1,000 ML IV ×2 (09:06→16:38)
[2018-05-22 09:13] LABS: ALANINE AMINOTRANSFERASE 39 IU/L (13-69); ALBUMIN 2.4 g/dl (3.3-4.9); ALBUMIN/GLOBULIN RATIO 0.64; ALKALINE PHOSPHATASE 108 IU/L (42-121); ANION GAP 6 (5-13); ASPARTATE AMINO TRANSFERASE 41 IU/L (15-46); BILIRUBIN,INDIRECT 0.7 mg/dl (0-1.1); BILIRUBIN,TOTAL 0.7 mg/dl (0.2-1.3); BLOOD UREA NITROGEN 20 mg/dl (7-20); CALCIUM 8.5 mg/dl (8.4-10.2); CARBON DIOXIDE 20 mmol/L (21-31); CHLORIDE 114 mmol/L (97-110); CREATININE 0.65 mg/dl (0.44-1.00); GLUCOSE 116 mg/dl (70-220); MAGNESIUM 1.8 mg/dl (1.7-2.5); PHOSPHORUS 2.7 mg/dl (2.5-4.9); POTASSIUM 3.7 mmol/L (3.5-5.1); SODIUM 140 mmol/L (135-144); TOTAL PROTEIN 6.1 g/dl (6.1-8.1)
[2018-05-22] MEDS: SUCRALFATE (100 MG/ML) 10ML CUP PO ×4 (09:42→20:47)
[2018-05-22 19:22] LABS: LACTIC ACID 1.2 mmol/L (0.5-2.0)
[2018-05-22] MEDS: BALSAM PERU/CASTOR OIL 60 GM TUBE TOP (20:47)
[2018-05-22] MEDS: POLYETHYLENE GLYCOL 17 GM PACKET PO ×2 (22:02→22:36)
[2018-05-22 23:29] LABS: VANCOMYCIN,TROUGH 7.4 ug/ml (10.0-20.0)
[2018-05-23] MEDS: SOD CHLORIDE 0.9% 1,000 ML IV ×2 (00:37→12:35)
[2018-05-23] MEDS: PIPER-TAZO 3.375 GM IV (PMX) 100 ML IVPB ×4 (00:38→17:48)
[2018-05-23] MEDS: VANCOMYCIN 500MG/NS (PMX) 100 ML IVPB (00:38)
[2018-05-23] MEDS: hydrALAzine 20 MG INJ IV ×3 (03:06→17:02)
[2018-05-23] MEDS: PANTOPRAZOLE 40 MG INJ IV ×2 (05:11→17:47)
[2018-05-23] MEDS: HYDROCODONE/APAP (5/325) TAB PO (05:11)
[2018-05-23] MEDS: LEVOTHYROXINE 100 MCG VIAL IV (05:11)
[2018-05-23] MEDS: SUCRALFATE (100 MG/ML) 10ML CUP PO ×6 (09:00→21:29)
[2018-05-23] MEDS: SENNA TAB PO (09:03)
[2018-05-23] MEDS: BALSAM PERU/CASTOR OIL 60 GM TUBE TOP ×2 (09:04→21:40)
[2018-05-23] MEDS: ALBUTEROL/IPRATROPIUM (NEB) 3 ML AMP HHN ×3 (10:56→20:25)
[2018-05-23] MEDS ORDERED: VANCOMYCIN 500MG/NS (PMX) 100 ML IVPB (11:00)
[2018-05-23 12:33] LABS: Allen Test ACCEPTAB; Arterial Base Excess -6.8 mmol/L (-3.0-3); Arterial Blood Gas Oxygen Sat 93.3 mmHG (95.0-100.0); Arterial COHb 0.5 % (0.0-3.0); Arterial Fraction of Oxyhgb 92.7 % (93.0-99.0); Arterial HCO3 18.4 mmol/L (22.0-26.0); Arterial MetHb 0.1 % (0.0-1.5); Arterial pCO2 35.4 mmhg (35-45); MODE NASAL CANNULA; Site Right Radial
[2018-05-23] MEDS ORDERED: GLUCOSE GEL 15 GRAM TUBE PO ×2 (13:00)
[2018-05-23] MEDS ORDERED: GLUCOSE GEL 15 GRAM TUBE BUCCAL (13:00)
[2018-05-23] MEDS ORDERED: GLUCAGON 1 MG INJ IM (13:00)
[2018-05-23] MEDS ORDERED: DEXTROSE 50% 50 ML SYRINGE IV ×2 (13:00)
[2018-05-23] MEDS: LABETALOL HCL 20MG INJ IV (13:18)
[2018-05-23] MEDS: FUROSEMIDE 40 MG INJ IV (13:19)
[2018-05-23 13:58] LABS: ADD MAN DIFF? NO
[2018-05-23 14:02] LABS: BASOPHILS % 0.3 % (0.0-2.0); EOSINOPHILS % 0.1 % (0.0-7.0); HEMATOCRIT 31.5 % (37.0-47.0); HEMOGLOBIN 9.7 g/dl (12.0-16.0); LYMPHOCYTES # 0.7 10^3/ul (0.8-2.9); LYMPHOCYTES % 6.5 % (15.0-51.0); MEAN CORPUSCULAR HEMOGLOBIN 28.3 pg (29.0-33.0); MEAN CORPUSCULAR HGB CONC 30.8 g/dl (32.0-37.0); MEAN CORPUSCULAR VOLUME 91.8 fl (82.0-101.0); MEAN PLATELET VOLUME 9.5 fl (7.4-10.4); MONOCYTE # 0.2 10^3/ul (0.3-0.9); NEUTROPHIL # 10.2 10^3/ul (1.6-7.5); NEUTROPHILS % 90.4 % (39.0-77.0); PLATELET COUNT 255 10^3/UL (140-415); RED BLOOD COUNT 3.43 10^6/ul (4.20-5.40); RED CELL DISTRIBUTION WIDTH 16.8 % (11.5-14.5)
[2018-05-23 14:02] LABS: WHITE BLOOD COUNT 11.3 10^3/ul (4.8-10.8)
[2018-05-23 14:18] LABS: ALANINE AMINOTRANSFERASE 38 IU/L (13-69); ALBUMIN 2.6 g/dl (3.3-4.9); ALKALINE PHOSPHATASE 130 IU/L (42-121); ANION GAP 8 (5-13); ASPARTATE AMINO TRANSFERASE 43 IU/L (15-46); BILIRUBIN,INDIRECT 0.7 mg/dl (0-1.1); BILIRUBIN,TOTAL 0.7 mg/dl (0.2-1.3); BLOOD UREA NITROGEN 17 mg/dl (7-20); CALCIUM 8.9 mg/dl (8.4-10.2); CARBON DIOXIDE 19 mmol/L (21-31); CHLORIDE 112 mmol/L (97-110); CREATININE 0.55 mg/dl (0.44-1.00); GLUCOSE 179 mg/dl (70-220); MAGNESIUM 1.8 mg/dl (1.7-2.5); PHOSPHORUS 3.1 mg/dl (2.5-4.9); POTASSIUM 3.5 mmol/L (3.5-5.1); SODIUM 139 mmol/L (135-144); TOTAL PROTEIN 6.9 g/dl (6.1-8.1)
[2018-05-23 14:46] LABS: TROPONIN-I < 0.012 ng/ml (0.000-0.120)
[2018-05-23 16:19] LABS: OCCULT BLOOD STOOL NEGATIVE (NEGATIVE)
[2018-05-23] MEDS: INSULIN ASPART [NOVOLOG] 3 ML PEN SC ×2 (17:43→21:00)
[2018-05-23] MEDS: VANCOMYCIN 750 MG in SOD CHLORIDE 0.9% 150 ML IVPB (21:34)
[2018-05-24] MEDS: GABAPENTIN 100 MG CAP PO ×2 (00:14→20:13)
[2018-05-24] MEDS: PIPER-TAZO 3.375 GM IV (PMX) 100 ML IVPB ×4 (00:15→20:11)
[2018-05-24] MEDS: ALBUTEROL/IPRATROPIUM (NEB) 3 ML AMP HHN ×6 (00:23→20:45)
[2018-05-24] MEDS: ACCU-CHEK XX (02:00)
[2018-05-24] MEDS: SOD CHLORIDE 0.9% 1,000 ML IV (04:00)
[2018-05-24] MEDS: LEVOTHYROXINE 100 MCG VIAL IV (06:01)
[2018-05-24] MEDS: PANTOPRAZOLE 40 MG INJ IV ×2 (06:01→17:20)
[2018-05-24] MEDS: hydrALAzine 20 MG INJ IV (06:10)
[2018-05-24] MEDS: INSULIN ASPART [NOVOLOG] 3 ML PEN SC ×4 (07:55→20:26)
[2018-05-24 09:21] LABS: ADD MAN DIFF? NO
[2018-05-24 09:27] LABS: BASOPHILS % 0.4 % (0.0-2.0); EOSINOPHILS % 0.6 % (0.0-7.0); LYMPHOCYTES % 14.1 % (15.0-51.0); MEAN CORPUSCULAR HEMOGLOBIN 28.6 pg (29.0-33.0); MEAN CORPUSCULAR HGB CONC 30.8 g/dl (32.0-37.0); MEAN CORPUSCULAR VOLUME 92.9 fl (82.0-101.0); MEAN PLATELET VOLUME 9.1 fl (7.4-10.4); MONOCYTE # 0.5 10^3/ul (0.3-0.9); NEUTROPHIL # 5.4 10^3/ul (1.6-7.5); NEUTROPHILS % 77.3 % (39.0-77.0); PLATELET COUNT 236 10^3/UL (140-415)
[2018-05-24] MEDS: BALSAM PERU/CASTOR OIL 60 GM TUBE TOP ×2 (09:41→20:13)
[2018-05-24] MEDS: CLOPIDOGREL 75 MG TAB PO (09:42)
[2018-05-24] MEDS: SUCRALFATE (100 MG/ML) 10ML CUP PO ×4 (09:42→20:13)
[2018-05-24] MEDS: ASPIRIN 325 MG TAB PO (09:44)
[2018-05-24 09:46] LABS: ALANINE AMINOTRANSFERASE 37 IU/L (13-69); ALBUMIN 2.3 g/dl (3.3-4.9); ALKALINE PHOSPHATASE 120 IU/L (42-121); ANION GAP 8 (5-13); ASPARTATE AMINO TRANSFERASE 34 IU/L (15-46); BILIRUBIN,INDIRECT 0.6 mg/dl (0-1.1); BILIRUBIN,TOTAL 0.6 mg/dl (0.2-1.3); BLOOD UREA NITROGEN 16 mg/dl (7-20); CALCIUM 8.6 mg/dl (8.4-10.2); CARBON DIOXIDE 23 mmol/L (21-31); CHLORIDE 110 mmol/L (97-110); CREATININE 0.62 mg/dl (0.44-1.00); GLUCOSE 174 mg/dl (70-220); MAGNESIUM 1.8 mg/dl (1.7-2.5); PHOSPHORUS 2.9 mg/dl (2.5-4.9); SODIUM 141 mmol/L (135-144); TOTAL PROTEIN 6.1 g/dl (6.1-8.1)
[2018-05-24 09:51] LABS: POTASSIUM 2.6 mmol/L (3.5-5.1)
[2018-05-24] MEDS: POTASSIUM CHLORIDE 20 MEQ POWDER FOR ORAL SOLN PO (10:50)
[2018-05-24] MEDS: POTASSIUM PHOSPHATE 40 MEQ in SOD CHLORIDE 0.9% 250 ML IVPB (12:06)
[2018-05-24 14:43] LABS: ANION GAP 7 (5-13); BLOOD UREA NITROGEN 19 mg/dl (7-20); CALCIUM 8.4 mg/dl (8.4-10.2); CARBON DIOXIDE 23 mmol/L (21-31); CHLORIDE 113 mmol/L (97-110); CREATININE 0.61 mg/dl (0.44-1.00); GLUCOSE 165 mg/dl (70-220); POTASSIUM 4.2 mmol/L (3.5-5.1); SODIUM 143 mmol/L (135-144)
[2018-05-24] MEDS: MAGNESIUM SULFATE 2 GM/50 ML 50 ML IVPB (17:20)
[2018-05-24] MEDS: VANCOMYCIN 750 MG in SOD CHLORIDE 0.9% 150 ML IVPB (21:49)
[2018-05-25] MEDS: hydrALAzine 20 MG INJ IV ×3 (00:06→18:10)
[2018-05-25] MEDS: ALBUTEROL/IPRATROPIUM (NEB) 3 ML AMP HHN ×6 (01:00→21:45)
[2018-05-25] MEDS: PIPER-TAZO 3.375 GM IV (PMX) 100 ML IVPB ×2 (01:11→06:37)
[2018-05-25] MEDS: ACCU-CHEK XX (02:00)
[2018-05-25 05:49] LABS: ADD MAN DIFF? NO
[2018-05-25] MEDS: LEVOTHYROXINE 100 MCG VIAL IV (05:50)
[2018-05-25] MEDS: PANTOPRAZOLE 40 MG INJ IV ×2 (05:50→17:17)
[2018-05-25 05:53] LABS: BASOPHILS % 0.3 % (0.0-2.0); EOSINOPHILS # 0.1 10^3/ul (0.0-0.5); EOSINOPHILS % 1.4 % (0.0-7.0); HEMOGLOBIN 7.8 g/dl (12.0-16.0); LYMPHOCYTES % 13.3 % (15.0-51.0); MEAN CORPUSCULAR HEMOGLOBIN 28.3 pg (29.0-33.0); MEAN CORPUSCULAR VOLUME 94.2 fl (82.0-101.0); MEAN PLATELET VOLUME 9.5 fl (7.4-10.4); MONOCYTE # 0.5 10^3/ul (0.3-0.9); MONOCYTES % 7.2 % (0.0-11.0); NEUTROPHIL # 5.7 10^3/ul (1.6-7.5); NEUTROPHILS % 77.1 % (39.0-77.0); PLATELET COUNT 223 10^3/UL (140-415); RED BLOOD COUNT 2.76 10^6/ul (4.20-5.40); RED CELL DISTRIBUTION WIDTH 17.2 % (11.5-14.5)
[2018-05-25 05:53] LABS: WHITE BLOOD COUNT 7.4 10^3/ul (4.8-10.8)
[2018-05-25 06:17] LABS: ANION GAP 8 (5-13); BLOOD UREA NITROGEN 16 mg/dl (7-20); CALCIUM 8.5 mg/dl (8.4-10.2); CARBON DIOXIDE 21 mmol/L (21-31); CHLORIDE 111 mmol/L (97-110); CREATININE 0.57 mg/dl (0.44-1.00); GLUCOSE 194 mg/dl (70-220); POTASSIUM 3.8 mmol/L (3.5-5.1); SODIUM 140 mmol/L (135-144)
[2018-05-25 06:28] LABS: PHOSPHORUS 3.4 mg/dl (2.5-4.9)
[2018-05-25 06:28] LABS: MAGNESIUM 2.3 mg/dl (1.7-2.5)
[2018-05-25] MEDS: INSULIN ASPART [NOVOLOG] 3 ML PEN SC ×4 (07:46→21:00)
[2018-05-25] MEDS: CLOPIDOGREL 75 MG TAB PO (08:03)
[2018-05-25] MEDS: ASPIRIN 325 MG TAB PO (08:03)
[2018-05-25] MEDS: SUCRALFATE (100 MG/ML) 10ML CUP PO ×4 (08:03→20:59)
[2018-05-25] MEDS: BALSAM PERU/CASTOR OIL 60 GM TUBE TOP ×2 (08:04→21:02)
[2018-05-25 09:47] LABS: ADD MAN DIFF? NO
[2018-05-25 09:49] LABS: BASOPHILS % 0.7 % (0.0-2.0); EOSINOPHILS # 0.1 10^3/ul (0.0-0.5); EOSINOPHILS % 1.1 % (0.0-7.0); HEMATOCRIT 28.6 % (37.0-47.0); HEMOGLOBIN 8.5 g/dl (12.0-16.0); LYMPHOCYTES % 15.7 % (15.0-51.0); MEAN CORPUSCULAR HEMOGLOBIN 28.3 pg (29.0-33.0); MEAN CORPUSCULAR HGB CONC 29.7 g/dl (32.0-37.0); MEAN CORPUSCULAR VOLUME 95.3 fl (82.0-101.0); MONOCYTE # 0.5 10^3/ul (0.3-0.9); MONOCYTES % 7.5 % (0.0-11.0); NEUTROPHIL # 4.5 10^3/ul (1.6-7.5); NEUTROPHILS % 74.2 % (39.0-77.0); PLATELET COUNT 237 10^3/UL (140-415); RED CELL DISTRIBUTION WIDTH 17.2 % (11.5-14.5)
[2018-05-25 09:49] LABS: WHITE BLOOD COUNT 6.1 10^3/ul (4.8-10.8)
[2018-05-25 09:58] LABS: HEMOGLOBIN A1C 5.4 % (0-5.9)
[2018-05-25 10:08] LABS: ANION GAP 8 (5-13); BLOOD UREA NITROGEN 16 mg/dl (7-20); CALCIUM 8.6 mg/dl (8.4-10.2); CARBON DIOXIDE 22 mmol/L (21-31); CHLORIDE 113 mmol/L (97-110); CHOL/HDL RATIO 2.8 RATIO; CHOLESTEROL 112 mg/dl (100-200); CREATININE 0.58 mg/dl (0.44-1.00); GLUCOSE 202 mg/dl (70-220); HDL CHOLESTEROL 39 mg/dl (33-92); INR 1.12; LDL CHOLESTEROL,CALCULATED 53 mg/dl; POTASSIUM 3.9 mmol/L (3.5-5.1); PROTIME 14.6 Sec (11.9-14.9); PT RATIO 1.1; SODIUM 143 mmol/L (135-144); TRIGLYCERIDES 102 mg/dl (0-149)
[2018-05-25 10:09] LABS: PARTIAL THROMBOPLASTIN TIME 29.6 Sec (23.0-35.0)
[2018-05-25 10:11] LABS: CREATINE KINASE < 20 IU/L (23-200)
[2018-05-25 10:20] LABS: CK-MB < 0.22 ng/ml (0.0-2.4); TROPONIN-I < 0.012 ng/ml (0.000-0.120)
[2018-05-25] MEDS: CEFTRIAXONE 1 GM/50 ML (PMX) 50 ML IVPB (13:37)
[2018-05-25] MEDS: AMLODIPINE 2.5 MG TAB PO (18:30)
[2018-05-25] MEDS: GABAPENTIN 100 MG CAP PO (20:58)
[2018-05-26] MEDS: ALBUTEROL/IPRATROPIUM (NEB) 3 ML AMP HHN ×6 (01:59→21:44)
[2018-05-26] MEDS: ACCU-CHEK XX (02:00)
[2018-05-26] MEDS: hydrALAzine 20 MG INJ IV ×3 (04:22→17:09)
[2018-05-26] MEDS: PANTOPRAZOLE 40 MG INJ IV ×2 (05:53→17:44)
[2018-05-26] MEDS: LEVOTHYROXINE 100 MCG VIAL IV (05:53)
[2018-05-26 06:08] LABS: ADD MAN DIFF? NO
[2018-05-26 06:11] LABS: BASOPHIL # 0.1 10^3/ul (0.0-0.1); BASOPHILS % 0.5 % (0.0-2.0); EOSINOPHILS % 0.1 % (0.0-7.0); HEMATOCRIT 27.4 % (37.0-47.0); HEMOGLOBIN 8.2 g/dl (12.0-16.0); LYMPHOCYTES % 7.3 % (15.0-51.0); MEAN CORPUSCULAR HEMOGLOBIN 28.4 pg (29.0-33.0); MEAN CORPUSCULAR HGB CONC 29.9 g/dl (32.0-37.0); MEAN CORPUSCULAR VOLUME 94.8 fl (82.0-101.0); MEAN PLATELET VOLUME 9.5 fl (7.4-10.4); MONOCYTE # 0.5 10^3/ul (0.3-0.9); MONOCYTES % 3.6 % (0.0-11.0); NEUTROPHIL # 11.6 10^3/ul (1.6-7.5); NEUTROPHILS % 87.7 % (39.0-77.0); PLATELET COUNT 214 10^3/UL (140-415); RED BLOOD COUNT 2.89 10^6/ul (4.20-5.40); RED CELL DISTRIBUTION WIDTH 17.2 % (11.5-14.5)
[2018-05-26 06:11] LABS: WHITE BLOOD COUNT 13.2 10^3/ul (4.8-10.8)
[2018-05-26 06:42] LABS: ANION GAP 6 (5-13); BLOOD UREA NITROGEN 16 mg/dl (7-20); CARBON DIOXIDE 24 mmol/L (21-31); CHLORIDE 113 mmol/L (97-110); CREATININE 0.53 mg/dl (0.44-1.00); GLUCOSE 124 mg/dl (70-220); POTASSIUM 3.5 mmol/L (3.5-5.1); SODIUM 143 mmol/L (135-144)
[2018-05-26] MEDS: INSULIN ASPART [NOVOLOG] 3 ML PEN SC ×4 (07:55→20:56)
[2018-05-26] MEDS: AMLODIPINE 2.5 MG TAB PO (08:52)
[2018-05-26] MEDS: SUCRALFATE (100 MG/ML) 10ML CUP PO ×4 (08:53→20:45)
[2018-05-26] MEDS: CLOPIDOGREL 75 MG TAB PO (08:53)
[2018-05-26] MEDS: ASPIRIN 325 MG TAB PO (08:53)
[2018-05-26] MEDS: BALSAM PERU/CASTOR OIL 60 GM TUBE TOP ×2 (08:54→20:47)
[2018-05-26] MEDS: FUROSEMIDE 20 MG INJ IV (12:09)
[2018-05-26] MEDS: CEFTRIAXONE 1 GM/50 ML (PMX) 50 ML IVPB (12:11)
[2018-05-26] MEDS: LIDOCAINE 2% (SDV) 5 ML INJ (16:08)
[2018-05-26] MEDS: ETOMIDATE 20 MG INJ (16:08)
[2018-05-26] MEDS: GABAPENTIN 100 MG CAP PO (20:46)
[2018-05-27] MEDS: ALBUTEROL/IPRATROPIUM (NEB) 3 ML AMP HHN ×6 (01:31→20:41)
[2018-05-27] MEDS: ACCU-CHEK XX (02:40)
[2018-05-27 05:52] LABS: ADD MAN DIFF? NO
[2018-05-27 06:01] LABS: BASOPHILS % 0.5 % (0.0-2.0); EOSINOPHILS # 0.1 10^3/ul (0.0-0.5); EOSINOPHILS % 1.5 % (0.0-7.0); HEMATOCRIT 24.2 % (37.0-47.0); HEMOGLOBIN 7.3 g/dl (12.0-16.0); LYMPHOCYTES % 18.5 % (15.0-51.0); MEAN CORPUSCULAR HEMOGLOBIN 28.5 pg (29.0-33.0); MEAN CORPUSCULAR HGB CONC 30.2 g/dl (32.0-37.0); MEAN CORPUSCULAR VOLUME 94.5 fl (82.0-101.0); MEAN PLATELET VOLUME 9.6 fl (7.4-10.4); MONOCYTE # 0.4 10^3/ul (0.3-0.9); MONOCYTES % 7.9 % (0.0-11.0); NEUTROPHIL # 3.9 10^3/ul (1.6-7.5); NEUTROPHILS % 71.2 % (39.0-77.0); PLATELET COUNT 197 10^3/UL (140-415); RED BLOOD COUNT 2.56 10^6/ul (4.20-5.40); RED CELL DISTRIBUTION WIDTH 17.2 % (11.5-14.5)
[2018-05-27 06:01] LABS: WHITE BLOOD COUNT 5.5 10^3/ul (4.8-10.8)
[2018-05-27] MEDS: LEVOTHYROXINE 100 MCG VIAL IV (06:07)
[2018-05-27] MEDS: PANTOPRAZOLE 40 MG INJ IV ×2 (06:07→17:06)
[2018-05-27 06:25] LABS: ANION GAP 7 (5-13); BLOOD UREA NITROGEN 16 mg/dl (7-20); CALCIUM 8.8 mg/dl (8.4-10.2); CARBON DIOXIDE 24 mmol/L (21-31); CHLORIDE 111 mmol/L (97-110); CREATININE 0.54 mg/dl (0.44-1.00); GLUCOSE 110 mg/dl (70-220); SODIUM 142 mmol/L (135-144)
[2018-05-27 07:11] LABS: POTASSIUM 2.9 mmol/L (3.5-5.1)
[2018-05-27] MEDS: INSULIN ASPART [NOVOLOG] 3 ML PEN SC ×4 (07:55→20:17)
[2018-05-27] MEDS: ASPIRIN 325 MG TAB PO (08:43)
[2018-05-27] MEDS: SUCRALFATE (100 MG/ML) 10ML CUP PO ×2 (08:43→13:06)
[2018-05-27] MEDS: CLOPIDOGREL 75 MG TAB PO (08:44)
[2018-05-27] MEDS: AMLODIPINE 2.5 MG TAB PO (08:44)
[2018-05-27] MEDS: POTASSIUM CHLORIDE (SR) 20 MEQ TAB PO ×2 (08:51→13:06)
[2018-05-27] MEDS: BALSAM PERU/CASTOR OIL 60 GM TUBE TOP ×2 (08:55→20:23)
[2018-05-27] MEDS ORDERED: POTASSIUM CHLORIDE 100 ML IVPB (09:00)
[2018-05-27] MEDS: HYDROCODONE/APAP (5/325) TAB PO (09:09)
[2018-05-27 11:16] LABS: HEMOGLOBIN 8.1 g/dl (12.0-16.0)
[2018-05-27 11:44] LABS: HEMATOCRIT 27.4 % (37.0-47.0)
[2018-05-27] MEDS: FERROUS SULFATE (EC) 325 MG TAB PO (13:06)
[2018-05-27] MEDS: CEFTRIAXONE 1 GM/50 ML (PMX) 50 ML IVPB (13:06)
[2018-05-27] MEDS: hydrALAzine 20 MG INJ IV ×2 (15:25→20:33)
[2018-05-27] MEDS: GABAPENTIN 100 MG CAP PO (20:15)
[2018-05-28] MEDS: hydrALAzine 20 MG INJ IV ×3 (01:30→11:50)
[2018-05-28] MEDS: ACCU-CHEK XX (02:00)
[2018-05-28] MEDS: ALBUTEROL/IPRATROPIUM (NEB) 3 ML AMP HHN ×6 (02:11→21:29)
[2018-05-28] MEDS: morphine 2 MG INJ IV (03:33)
[2018-05-28 06:17] LABS: ADD MAN DIFF? NO
[2018-05-28 06:25] LABS: BASOPHILS % 0.2 % (0.0-2.0); EOSINOPHILS % 0.5 % (0.0-7.0); HEMATOCRIT 28.2 % (37.0-47.0); HEMOGLOBIN 8.5 g/dl (12.0-16.0); LYMPHOCYTES % 17.8 % (15.0-51.0); MEAN CORPUSCULAR HGB CONC 30.1 g/dl (32.0-37.0); MEAN CORPUSCULAR VOLUME 96.2 fl (82.0-101.0); MEAN PLATELET VOLUME 9.8 fl (7.4-10.4); MONOCYTE # 0.3 10^3/ul (0.3-0.9); MONOCYTES % 4.8 % (0.0-11.0); NEUTROPHIL # 4.2 10^3/ul (1.6-7.5); NEUTROPHILS % 76.5 % (39.0-77.0); PLATELET COUNT 239 10^3/UL (140-415); RED BLOOD COUNT 2.93 10^6/ul (4.20-5.40); RED CELL DISTRIBUTION WIDTH 16.8 % (11.5-14.5)
[2018-05-28 06:25] LABS: WHITE BLOOD COUNT 5.5 10^3/ul (4.8-10.8)
[2018-05-28] MEDS: LEVOTHYROXINE 75 MCG TAB PO (06:40)
[2018-05-28] MEDS: LEVOTHYROXINE 100 MCG VIAL IV (06:40)
[2018-05-28] MEDS: PANTOPRAZOLE 40 MG INJ IV ×2 (06:40→18:32)
[2018-05-28] MEDS: LABETALOL HCL 20MG INJ IV (06:40)
[2018-05-28 06:50] LABS: ANION GAP 6 (5-13); BLOOD UREA NITROGEN 25 mg/dl (7-20); CALCIUM 9.1 mg/dl (8.4-10.2); CARBON DIOXIDE 28 mmol/L (21-31); CHLORIDE 110 mmol/L (97-110); CREATININE 0.55 mg/dl (0.44-1.00); GLUCOSE 182 mg/dl (70-220); POTASSIUM 4.1 mmol/L (3.5-5.1); SODIUM 144 mmol/L (135-144)
[2018-05-28] MEDS: INSULIN ASPART [NOVOLOG] 3 ML PEN SC ×4 (08:06→21:05)
[2018-05-28] MEDS: CLOPIDOGREL 75 MG TAB PO (08:29)
[2018-05-28] MEDS: AMLODIPINE 2.5 MG TAB PO ×2 (08:29→11:50)
[2018-05-28] MEDS: FERROUS SULFATE (EC) 325 MG TAB PO (08:29)
[2018-05-28] MEDS: ASPIRIN 325 MG TAB PO (08:29)
[2018-05-28] MEDS: BALSAM PERU/CASTOR OIL 60 GM TUBE TOP ×2 (08:30→23:00)
[2018-05-28] MEDS ORDERED: morphine 2 MG INJ IV (11:30)
[2018-05-28] MEDS: MEGESTROL (40 MG/ML) 10ML CUP PO (11:49)
[2018-05-28] MEDS: CEFTRIAXONE 1 GM/50 ML (PMX) 50 ML IVPB (13:00)
[2018-05-28] MEDS: GABAPENTIN 100 MG CAP PO (20:56)
[2018-05-29] MEDS: ALBUTEROL/IPRATROPIUM (NEB) 3 ML AMP HHN ×6 (01:00→20:27)
[2018-05-29] MEDS: ACCU-CHEK XX (02:00)
[2018-05-29] MEDS: PANTOPRAZOLE 40 MG INJ IV ×2 (05:37→17:16)
[2018-05-29] MEDS: LEVOTHYROXINE 75 MCG TAB PO (05:37)
[2018-05-29 06:29] LABS: ADD MAN DIFF? NO
[2018-05-29 06:30] LABS: WHITE BLOOD COUNT 6.6 10^3/ul (4.8-10.8)
[2018-05-29 06:30] LABS: BASOPHILS % 0.3 % (0.0-2.0); EOSINOPHILS # 0.1 10^3/ul (0.0-0.5); EOSINOPHILS % 1.1 % (0.0-7.0); HEMATOCRIT 28.5 % (37.0-47.0); HEMOGLOBIN 8.6 g/dl (12.0-16.0); LYMPHOCYTES # 1.4 10^3/ul (0.8-2.9); MEAN CORPUSCULAR HEMOGLOBIN 28.9 pg (29.0-33.0); MEAN CORPUSCULAR HGB CONC 30.2 g/dl (32.0-37.0); MEAN CORPUSCULAR VOLUME 95.6 fl (82.0-101.0); MEAN PLATELET VOLUME 9.9 fl (7.4-10.4); MONOCYTE # 0.3 10^3/ul (0.3-0.9); MONOCYTES % 4.5 % (0.0-11.0); NEUTROPHIL # 4.8 10^3/ul (1.6-7.5); NEUTROPHILS % 72.6 % (39.0-77.0); PLATELET COUNT 248 10^3/UL (140-415); RED BLOOD COUNT 2.98 10^6/ul (4.20-5.40); RED CELL DISTRIBUTION WIDTH 16.8 % (11.5-14.5)
[2018-05-29 06:55] LABS: ANION GAP 6 (5-13); BLOOD UREA NITROGEN 23 mg/dl (7-20); CARBON DIOXIDE 27 mmol/L (21-31); CHLORIDE 111 mmol/L (97-110); CREATININE 0.47 mg/dl (0.44-1.00); GLUCOSE 138 mg/dl (70-220); POTASSIUM 4.2 mmol/L (3.5-5.1); SODIUM 144 mmol/L (135-144)
[2018-05-29] MEDS: hydrALAzine 20 MG INJ IV (07:39)
[2018-05-29] MEDS: INSULIN ASPART [NOVOLOG] 3 ML PEN SC ×4 (07:50→20:50)
[2018-05-29] MEDS: AMLODIPINE 5 MG TAB PO (08:37)
[2018-05-29] MEDS ORDERED: PROPOFOL 0 ML (11:36)
[2018-05-29] MEDS ORDERED: MIDAZOLAM 1 MG/ML 2 ML INJ (11:36)
[2018-05-29] MEDS ORDERED: PROPOFOL 20 ML (11:47)
[2018-05-29] MEDS ORDERED: FENTAnyl 50 MCG/ML VIAL IV ×3 (12:30)
[2018-05-29] MEDS ORDERED: METOCLOPRAMIDE 10 MG INJ IV (12:30)
[2018-05-29] MEDS ORDERED: ONDANSETRON 4 MG INJ IV (12:30)
[2018-05-29] MEDS ORDERED: MEPERIDINE 25 MG INJ IV (12:30)
[2018-05-29] MEDS ORDERED: EPHEDrine SULFATE 50 MG/5 ML SYG IV (12:30)
[2018-05-29] MEDS ORDERED: OXYCODONE/ACETAMINOPHEN (5/325) TAB PO ×2 (12:30)
[2018-05-29] MEDS ORDERED: DIPHENHYDRAMINE 50 MG INJ IV (12:30)
[2018-05-29] MEDS ORDERED: hydrALAzine 20 MG INJ IV (12:30)
[2018-05-29] MEDS ORDERED: MIDAZOLAM 1 MG/ML 2 ML INJ IV (12:30)
[2018-05-29] MEDS: LABETALOL HCL 20MG INJ IV (13:15)
[2018-05-29] MEDS: FERROUS SULFATE (EC) 325 MG TAB PO (13:56)
[2018-05-29] MEDS: ASPIRIN 325 MG TAB PO (13:56)
[2018-05-29] MEDS: CLOPIDOGREL 75 MG TAB PO (13:56)
[2018-05-29] MEDS: BALSAM PERU/CASTOR OIL 60 GM TUBE TOP ×2 (13:56→20:44)
[2018-05-29] MEDS: CEFTRIAXONE 1 GM/50 ML (PMX) 50 ML IVPB (13:57)
[2018-05-29] MEDS: FUROSEMIDE 20 MG INJ IV (14:58)
[2018-05-29] MEDS: GABAPENTIN 100 MG CAP PO (20:41)
[2018-05-29] MEDS: HYDROCODONE/APAP (5/325) TAB PO (20:44)
[2018-05-30] MEDS: ALBUTEROL/IPRATROPIUM (NEB) 3 ML AMP HHN ×6 (01:13→20:05)
[2018-05-30] MEDS: ACCU-CHEK XX (02:00)
[2018-05-30] MEDS: hydrALAzine 20 MG INJ IV ×2 (03:19→15:36)
[2018-05-30] MEDS: PANTOPRAZOLE 40 MG INJ IV ×2 (06:03→17:34)
[2018-05-30] MEDS: LEVOTHYROXINE 75 MCG TAB PO (06:03)
[2018-05-30] MEDS: INSULIN ASPART [NOVOLOG] 3 ML PEN SC ×4 (07:51→20:45)
[2018-05-30] MEDS: CLOPIDOGREL 75 MG TAB PO (08:13)
[2018-05-30] MEDS: ASPIRIN 325 MG TAB PO (08:13)
[2018-05-30] MEDS: AMLODIPINE 5 MG TAB PO (08:14)
[2018-05-30] MEDS: FUROSEMIDE 20 MG INJ IV (08:14)
[2018-05-30] MEDS: FERROUS SULFATE (EC) 325 MG TAB PO (08:14)
[2018-05-30] MEDS: BALSAM PERU/CASTOR OIL 60 GM TUBE TOP ×2 (08:15→20:45)
[2018-05-30] MEDS: CEFTRIAXONE 1 GM/50 ML (PMX) 50 ML IVPB (12:52)
[2018-05-30] MEDS: GABAPENTIN 100 MG CAP PO (20:44)
[2018-05-31] MEDS: ALBUTEROL/IPRATROPIUM (NEB) 3 ML AMP HHN ×6 (00:12→20:20)
[2018-05-31] MEDS: ACCU-CHEK XX (02:00)
[2018-05-31] MEDS: PANTOPRAZOLE 40 MG INJ IV ×2 (06:00→17:24)
[2018-05-31] MEDS: LEVOTHYROXINE 75 MCG TAB PO (06:03)
[2018-05-31] MEDS: INSULIN ASPART [NOVOLOG] 3 ML PEN SC ×4 (07:33→21:00)
[2018-05-31] MEDS: AMLODIPINE 5 MG TAB PO (08:05)
[2018-05-31] MEDS: ASPIRIN 325 MG TAB PO (08:05)
[2018-05-31] MEDS: CLOPIDOGREL 75 MG TAB PO (08:06)
[2018-05-31] MEDS: FERROUS SULFATE (EC) 325 MG TAB PO (08:06)
[2018-05-31] MEDS: BALSAM PERU/CASTOR OIL 60 GM TUBE TOP ×2 (08:07→21:53)
[2018-05-31] MEDS: CEFTRIAXONE 1 GM/50 ML (PMX) 50 ML IVPB (12:43)
[2018-05-31] MEDS: hydrALAzine 20 MG INJ IV (21:44)
[2018-05-31] MEDS: GABAPENTIN 100 MG CAP PO (21:44)
[2018-05-31] MEDS: HYDROCODONE/APAP (5/325) TAB PO (21:52)
[2018-06-01] MEDS: ACCU-CHEK XX (01:28)
[2018-06-01] MEDS: ALBUTEROL/IPRATROPIUM (NEB) 3 ML AMP HHN ×6 (01:40→20:44)
[2018-06-01] MEDS: PANTOPRAZOLE 40 MG INJ IV ×2 (05:26→17:22)
[2018-06-01] MEDS: LEVOTHYROXINE 75 MCG TAB PO (05:42)
[2018-06-01] MEDS: INSULIN ASPART [NOVOLOG] 3 ML PEN SC ×4 (07:55→21:00)
[2018-06-01] MEDS: AMLODIPINE 5 MG TAB PO (08:07)
[2018-06-01] MEDS: ASPIRIN 325 MG TAB PO (08:07)
[2018-06-01] MEDS: FERROUS SULFATE (EC) 325 MG TAB PO (08:08)
[2018-06-01] MEDS: CLOPIDOGREL 75 MG TAB PO (08:08)
[2018-06-01] MEDS: BALSAM PERU/CASTOR OIL 60 GM TUBE TOP ×2 (08:09→21:58)
[2018-06-01] MEDS: CEFTRIAXONE 1 GM/50 ML (PMX) 50 ML IVPB (13:00)
[2018-06-01] MEDS: HYDROCODONE/APAP (5/325) TAB PO (16:05)
[2018-06-01] MEDS: hydrALAzine 20 MG INJ IV (19:38)
[2018-06-01] MEDS: GABAPENTIN 100 MG CAP PO (21:47)
[2018-06-02] MEDS: ALBUTEROL/IPRATROPIUM (NEB) 3 ML AMP HHN ×5 (01:08→19:46)
[2018-06-02] MEDS: ACCU-CHEK XX (02:00)
[2018-06-02] MEDS: hydrALAzine 20 MG INJ IV (04:21)
[2018-06-02] MEDS: LEVOTHYROXINE 75 MCG TAB PO (06:28)
[2018-06-02] MEDS: PANTOPRAZOLE 40 MG INJ IV ×2 (06:28→17:09)
[2018-06-02] MEDS: FERROUS SULFATE (EC) 325 MG TAB PO (08:05)
[2018-06-02] MEDS: CLOPIDOGREL 75 MG TAB PO (08:05)
[2018-06-02] MEDS: ASPIRIN 325 MG TAB PO (08:05)
[2018-06-02] MEDS: AMLODIPINE 5 MG TAB PO (08:06)
[2018-06-02] MEDS: BALSAM PERU/CASTOR OIL 60 GM TUBE TOP ×2 (08:07→21:12)
[2018-06-02] MEDS: INSULIN ASPART [NOVOLOG] 3 ML PEN SC ×4 (08:34→21:00)
[2018-06-02] MEDS: D5W-0.45 NACL + KCL 10 MEQ 1,000 ML IV (15:00)
[2018-06-02] MEDS: PIPER-TAZO 3.375 GM IV (PMX) 100 ML IVPB (16:22)
[2018-06-02] MEDS: FUROSEMIDE 40 MG INJ IV (17:09)
[2018-06-02] MEDS: ACETYLCYSTEINE 20% 4 ML VIAL NEB ×2 (17:43→19:46)
[2018-06-02] MEDS: GABAPENTIN 100 MG CAP PO (21:05)
[2018-06-03] MEDS: ACETYLCYSTEINE 20% 4 ML VIAL NEB ×4 (01:27→21:41)
[2018-06-03] MEDS: ALBUTEROL/IPRATROPIUM (NEB) 3 ML AMP HHN ×4 (01:27→21:40)
[2018-06-03] MEDS: ACCU-CHEK XX (02:00)
[2018-06-03] MEDS: PIPER-TAZO 3.375 GM IV (PMX) 100 ML IVPB ×3 (02:43→17:19)
[2018-06-03] MEDS: hydrALAzine 20 MG INJ IV (04:21)
[2018-06-03 06:07] LABS: ADD MAN DIFF? NO
[2018-06-03 06:10] LABS: BASOPHILS % 0.5 % (0.0-2.0); EOSINOPHILS % 0.3 % (0.0-7.0); HEMATOCRIT 25.2 % (37.0-47.0); HEMOGLOBIN 7.6 g/dl (12.0-16.0); LYMPHOCYTES % 16.9 % (15.0-51.0); MEAN CORPUSCULAR HGB CONC 30.2 g/dl (32.0-37.0); MEAN PLATELET VOLUME 10.2 fl (7.4-10.4); MONOCYTE # 0.4 10^3/ul (0.3-0.9); MONOCYTES % 6.3 % (0.0-11.0); NEUTROPHIL # 4.6 10^3/ul (1.6-7.5); NEUTROPHILS % 75.7 % (39.0-77.0); PLATELET COUNT 235 10^3/UL (140-415); RED BLOOD COUNT 2.71 10^6/ul (4.20-5.40); RED CELL DISTRIBUTION WIDTH 16.5 % (11.5-14.5)
[2018-06-03 06:40] LABS: ANION GAP 5 (5-13); BLOOD UREA NITROGEN 16 mg/dl (7-20); CALCIUM 8.4 mg/dl (8.4-10.2); CARBON DIOXIDE 31 mmol/L (21-31); CHLORIDE 103 mmol/L (97-110); GLUCOSE 132 mg/dl (70-220); MAGNESIUM 1.9 mg/dl (1.7-2.5); PHOSPHORUS 2.9 mg/dl (2.5-4.9); POTASSIUM 3.3 mmol/L (3.5-5.1); SODIUM 139 mmol/L (135-144)
[2018-06-03] MEDS: PANTOPRAZOLE 40 MG INJ IV ×2 (06:46→17:19)
[2018-06-03] MEDS: LEVOTHYROXINE 75 MCG TAB PO (06:46)
[2018-06-03] MEDS: D5W-0.45 NACL + KCL 10 MEQ 1,000 ML IV ×2 (06:46→16:57)
[2018-06-03] MEDS: INSULIN ASPART [NOVOLOG] 3 ML PEN SC ×4 (08:14→20:44)
[2018-06-03] MEDS: FERROUS SULFATE (EC) 325 MG TAB PO (08:18)
[2018-06-03] MEDS: ASPIRIN 325 MG TAB PO (08:18)
[2018-06-03] MEDS: CLOPIDOGREL 75 MG TAB PO (08:18)
[2018-06-03] MEDS: AMLODIPINE 10 MG TAB PO (08:19)
[2018-06-03] MEDS: BALSAM PERU/CASTOR OIL 60 GM TUBE TOP ×2 (08:19→20:46)
[2018-06-03] MEDS: FUROSEMIDE 40 MG INJ IV (08:20)
[2018-06-03] MEDS: LIDOCAINE 1% (MPF) 5 ML VIAL (14:23)
[2018-06-03 14:35] LABS: FLD PMN% 4.3 %; FLD RBC 0 /uL; FLD WBC 257 /cmm
[2018-06-03 14:55] LABS: FLUID GLUCOSE 145 mg/dl; FLUID TYPE THORACENTESIS FLUID
[2018-06-03 14:56] LABS: FLUID LD 142 U/L; FLUID TOTAL PROTEIN < 2.0 g/dl; FLUID TYPE THORACENTESIS FLUID
[2018-06-03] MEDS: POTASSIUM CHLORIDE (SR) 10 MEQ TAB PO (15:54)
[2018-06-03 16:03] LABS: FLD CLARITY CLEAR
[2018-06-03 16:03] LABS: FLD TYPE PLEURAL
[2018-06-03 16:04] LABS: FLD MN% 95.7 %
[2018-06-03] MEDS: SOD CHLORIDE 0.9% 250 ML IV* (17:22)
[2018-06-03 17:24] LABS: IMMEDIATE SPIN CROSSMATCH 1 1
[2018-06-03] MEDS: GABAPENTIN 100 MG CAP PO (20:45)
[2018-06-04] MEDS: PIPER-TAZO 3.375 GM IV (PMX) 100 ML IVPB ×3 (01:27→17:11)
[2018-06-04] MEDS: ACCU-CHEK XX (01:28)
[2018-06-04] MEDS: ALBUTEROL/IPRATROPIUM (NEB) 3 ML AMP HHN ×4 (02:08→19:55)
[2018-06-04] MEDS: ACETYLCYSTEINE 20% 4 ML VIAL NEB ×4 (02:08→19:55)
[2018-06-04] MEDS: PANTOPRAZOLE 40 MG INJ IV ×2 (05:26→17:11)
[2018-06-04] MEDS: LEVOTHYROXINE 75 MCG TAB PO (05:26)
[2018-06-04] MEDS: D5W-0.45 NACL + KCL 10 MEQ 1,000 ML IV ×2 (07:00→20:19)
[2018-06-04] MEDS: INSULIN ASPART [NOVOLOG] 3 ML PEN SC ×4 (07:55→20:20)
[2018-06-04 08:03] LABS: HEMATOCRIT 27.8 % (37.0-47.0); HEMOGLOBIN 8.9 g/dl (12.0-16.0); MEAN CORPUSCULAR HEMOGLOBIN 28.3 pg (29.0-33.0); MEAN CORPUSCULAR VOLUME 88.5 fl (82.0-101.0); MEAN PLATELET VOLUME 10.4 fl (7.4-10.4); PLATELET COUNT 187 10^3/UL (140-415); RED BLOOD COUNT 3.14 10^6/ul (4.20-5.40); RED CELL DISTRIBUTION WIDTH 17.8 % (11.5-14.5)
[2018-06-04 08:09] LABS: ADD MAN DIFF? YES; POSITIVE DIFF @See below
[2018-06-04 08:15] LABS: ANION GAP 5 (5-13); BLOOD UREA NITROGEN 16 mg/dl (7-20); CALCIUM 8.2 mg/dl (8.4-10.2); CARBON DIOXIDE 33 mmol/L (21-31); CHLORIDE 101 mmol/L (97-110); CREATININE 0.58 mg/dl (0.44-1.00); GLUCOSE 128 mg/dl (70-220); SODIUM 139 mmol/L (135-144)
[2018-06-04 08:18] LABS: POTASSIUM 2.9 mmol/L (3.5-5.1)
[2018-06-04] MEDS: ASPIRIN 325 MG TAB PO (08:33)
[2018-06-04] MEDS: CLOPIDOGREL 75 MG TAB PO (08:34)
[2018-06-04] MEDS: FERROUS SULFATE (EC) 325 MG TAB PO (08:34)
[2018-06-04] MEDS: AMLODIPINE 10 MG TAB PO (08:34)
[2018-06-04] MEDS: FUROSEMIDE 40 MG INJ IV (08:35)
[2018-06-04] MEDS: POTASSIUM CHLORIDE (SR) 20 MEQ TAB PO ×3 (08:36→12:31)
[2018-06-04 09:21] LABS: ANISOCYTOSIS 1+ (0-0); BAND NEUTROPHILS #M 0.2 10^3/ul (0.0-0.6); BAND NEUTROPHILS % (M) 8 % (0-4); GIANT THROMBO% (M) 7 % (0-0); HYPOCHROMASIA 1+ (0-0); LYMPHOCYTES #M 0.5 10^3/ul (0.8-2.9); LYMPHOCYTES % (M) 17 % (15-51); MONOCYTE #M 0.3 10^3/ul (0.3-0.9); MONOCYTES % (M) 12 % (0-11); MYELOCYTES % (M) 1 % (0-0); PLATELET ESTIMATE NORMAL; REACTIVE LYMPHOCYTES% (M) 1 % (0-0); SEG NEUT #M 1.8 10^3/ul (1.6-7.5); SEGMENTED NEUTROPHILS (M) % 61 % (39-77); SMUDGE%M 1 % (0-0)
[2018-06-04] MEDS: LIDOCAINE 1% (MPF) 5 ML VIAL (09:34)
[2018-06-04] MEDS: BALSAM PERU/CASTOR OIL 60 GM TUBE TOP ×2 (10:26→20:18)
[2018-06-04] MEDS: HYDROCODONE/APAP (5/325) TAB PO (16:38)
[2018-06-04] MEDS: GABAPENTIN 100 MG CAP PO (20:18)
[2018-06-05] MEDS: D5W-0.45 NACL + KCL 10 MEQ 1,000 ML IV ×3 (01:08→23:00)
[2018-06-05] MEDS: ACCU-CHEK XX (01:51)
[2018-06-05] MEDS: PIPER-TAZO 3.375 GM IV (PMX) 100 ML IVPB ×3 (01:51→17:55)
[2018-06-05] MEDS: ALBUTEROL/IPRATROPIUM (NEB) 3 ML AMP HHN ×4 (02:16→20:11)
[2018-06-05] MEDS: ACETYLCYSTEINE 20% 4 ML VIAL NEB ×4 (02:16→20:11)
[2018-06-05] MEDS: PANTOPRAZOLE 40 MG INJ IV ×2 (06:17→17:51)
[2018-06-05] MEDS: LEVOTHYROXINE 75 MCG TAB PO (06:17)
[2018-06-05] MEDS: INSULIN ASPART [NOVOLOG] 3 ML PEN SC ×4 (07:55→21:00)
[2018-06-05] MEDS: CLOPIDOGREL 75 MG TAB PO (08:17)
[2018-06-05] MEDS: AMLODIPINE 10 MG TAB PO (08:17)
[2018-06-05] MEDS: ASPIRIN 325 MG TAB PO (08:17)
[2018-06-05] MEDS: FERROUS SULFATE (EC) 325 MG TAB PO (08:17)
[2018-06-05] MEDS: FUROSEMIDE 40 MG INJ IV (08:18)
[2018-06-05] MEDS: BALSAM PERU/CASTOR OIL 60 GM TUBE TOP ×2 (08:26→21:43)
[2018-06-05 11:33] LABS: ADD MAN DIFF? NO
[2018-06-05 11:39] LABS: WHITE BLOOD COUNT 3.8 10^3/ul (4.8-10.8)
[2018-06-05 11:39] LABS: BASOPHILS % 0.8 % (0.0-2.0); EOSINOPHILS # 0.1 10^3/ul (0.0-0.5); EOSINOPHILS % 1.6 % (0.0-7.0); HEMATOCRIT 30.4 % (37.0-47.0); HEMOGLOBIN 9.4 g/dl (12.0-16.0); LYMPHOCYTES % 26.4 % (15.0-51.0); MEAN CORPUSCULAR HEMOGLOBIN 27.9 pg (29.0-33.0); MEAN CORPUSCULAR HGB CONC 30.9 g/dl (32.0-37.0); MEAN CORPUSCULAR VOLUME 90.2 fl (82.0-101.0); MEAN PLATELET VOLUME 10.5 fl (7.4-10.4); MONOCYTE # 0.5 10^3/ul (0.3-0.9); MONOCYTES % 13.1 % (0.0-11.0); NEUTROPHIL # 2.2 10^3/ul (1.6-7.5); NEUTROPHILS % 57.6 % (39.0-77.0); PLATELET COUNT 179 10^3/UL (140-415); RED BLOOD COUNT 3.37 10^6/ul (4.20-5.40); RED CELL DISTRIBUTION WIDTH 17.8 % (11.5-14.5)
[2018-06-05 12:02] LABS: ANION GAP 3 (5-13); BLOOD UREA NITROGEN 16 mg/dl (7-20); CALCIUM 8.4 mg/dl (8.4-10.2); CARBON DIOXIDE 31 mmol/L (21-31); CHLORIDE 101 mmol/L (97-110); CREATININE 0.58 mg/dl (0.44-1.00); GLUCOSE 160 mg/dl (70-220); POTASSIUM 4.1 mmol/L (3.5-5.1); SODIUM 135 mmol/L (135-144)
[2018-06-05] MEDS: HYDROCODONE/APAP (5/325) TAB PO (15:48)
[2018-06-05] MEDS: GABAPENTIN 100 MG CAP PO (21:42)
[2018-06-06] MEDS: ACCU-CHEK XX (02:00)
[2018-06-06] MEDS: PIPER-TAZO 3.375 GM IV (PMX) 100 ML IVPB ×3 (02:11→18:01)
[2018-06-06] MEDS: ACETYLCYSTEINE 20% 4 ML VIAL NEB ×4 (02:23→20:13)
[2018-06-06] MEDS: ALBUTEROL/IPRATROPIUM (NEB) 3 ML AMP HHN ×4 (02:23→20:07)
[2018-06-06] MEDS: D5W-0.45 NACL + KCL 10 MEQ 1,000 ML IV ×3 (02:33→21:14)
[2018-06-06] MEDS: PANTOPRAZOLE 40 MG INJ IV ×2 (05:21→18:01)
[2018-06-06] MEDS: LEVOTHYROXINE 75 MCG TAB PO (05:21)
[2018-06-06] MEDS: INSULIN ASPART [NOVOLOG] 3 ML PEN SC ×4 (07:55→21:00)
[2018-06-06] MEDS: AMLODIPINE 10 MG TAB PO (08:45)
[2018-06-06] MEDS: FUROSEMIDE 40 MG INJ IV (08:45)
[2018-06-06] MEDS: ASPIRIN 325 MG TAB PO (08:45)
[2018-06-06] MEDS: FERROUS SULFATE (EC) 325 MG TAB PO (08:45)
[2018-06-06] MEDS: CLOPIDOGREL 75 MG TAB PO (08:45)
[2018-06-06] MEDS: BALSAM PERU/CASTOR OIL 60 GM TUBE TOP ×2 (08:46→21:03)
[2018-06-06] MEDS: HYDROCODONE/APAP (5/325) TAB PO (18:35)
[2018-06-06] MEDS: GABAPENTIN 100 MG CAP PO (21:02)
[2018-06-07] MEDS: D5W-0.45 NACL + KCL 10 MEQ 1,000 ML IV ×2 (01:40→14:42)
[2018-06-07] MEDS: PIPER-TAZO 3.375 GM IV (PMX) 100 ML IVPB ×3 (01:52→17:28)
[2018-06-07] MEDS: ACETYLCYSTEINE 20% 4 ML VIAL NEB ×4 (02:00→19:26)
[2018-06-07] MEDS: ACCU-CHEK XX (02:00)
[2018-06-07] MEDS: ALBUTEROL/IPRATROPIUM (NEB) 3 ML AMP HHN ×4 (02:00→19:26)
[2018-06-07] MEDS: hydrALAzine 20 MG INJ IV (05:13)
[2018-06-07] MEDS: PANTOPRAZOLE 40 MG INJ IV (05:13)
[2018-06-07] MEDS: LEVOTHYROXINE 75 MCG TAB PO (05:13)
[2018-06-07 05:54] LABS: ADD MAN DIFF? NO
[2018-06-07 05:55] LABS: WHITE BLOOD COUNT 5.7 10^3/ul (4.8-10.8)
[2018-06-07 05:55] LABS: BASOPHIL # 0.1 10^3/ul (0.0-0.1); BASOPHILS % 0.9 % (0.0-2.0); EOSINOPHILS # 0.2 10^3/ul (0.0-0.5); EOSINOPHILS % 3.9 % (0.0-7.0); HEMATOCRIT 27.7 % (37.0-47.0); HEMOGLOBIN 8.9 g/dl (12.0-16.0); LYMPHOCYTES # 1.2 10^3/ul (0.8-2.9); LYMPHOCYTES % 20.6 % (15.0-51.0); MEAN CORPUSCULAR HEMOGLOBIN 28.6 pg (29.0-33.0); MEAN CORPUSCULAR HGB CONC 32.1 g/dl (32.0-37.0); MEAN CORPUSCULAR VOLUME 89.1 fl (82.0-101.0); MEAN PLATELET VOLUME 10.3 fl (7.4-10.4); MONOCYTE # 0.6 10^3/ul (0.3-0.9); MONOCYTES % 10.1 % (0.0-11.0); NEUTROPHIL # 3.6 10^3/ul (1.6-7.5); NEUTROPHILS % 64.1 % (39.0-77.0); PLATELET COUNT 204 10^3/UL (140-415); RED BLOOD COUNT 3.11 10^6/ul (4.20-5.40)
[2018-06-07 06:35] LABS: ANION GAP 6 (5-13); BLOOD UREA NITROGEN 17 mg/dl (7-20); CALCIUM 8.5 mg/dl (8.4-10.2); CARBON DIOXIDE 32 mmol/L (21-31); CHLORIDE 98 mmol/L (97-110); CREATININE 0.58 mg/dl (0.44-1.00); GLUCOSE 134 mg/dl (70-220); MAGNESIUM 1.9 mg/dl (1.7-2.5); PHOSPHORUS 2.9 mg/dl (2.5-4.9); POTASSIUM 3.7 mmol/L (3.5-5.1); SODIUM 136 mmol/L (135-144)
[2018-06-07] MEDS: INSULIN ASPART [NOVOLOG] 3 ML PEN SC ×4 (08:02→21:00)
[2018-06-07] MEDS: CLOPIDOGREL 75 MG TAB PO (08:21)
[2018-06-07] MEDS: ASPIRIN 325 MG TAB PO (08:21)
[2018-06-07] MEDS: AMLODIPINE 10 MG TAB PO (08:22)
[2018-06-07] MEDS: FUROSEMIDE 40 MG INJ IV (08:23)
[2018-06-07] MEDS: BALSAM PERU/CASTOR OIL 60 GM TUBE TOP ×2 (08:23→21:38)
[2018-06-07] MEDS: FERROUS SULFATE (EC) 325 MG TAB PO (08:52)
[2018-06-07] MEDS: PANTOPRAZOLE (EC) 40 MG TAB PO (17:28)
[2018-06-07] MEDS: HYDROCODONE/APAP (5/325) TAB PO (17:28)
[2018-06-07] MEDS: GABAPENTIN 100 MG CAP PO (21:37)
[2018-06-08] MEDS: ALBUTEROL/IPRATROPIUM (NEB) 3 ML AMP HHN ×4 (01:18→20:03)
[2018-06-08] MEDS: ACETYLCYSTEINE 20% 4 ML VIAL NEB ×4 (01:18→20:03)
[2018-06-08] MEDS: ACCU-CHEK XX (02:00)
[2018-06-08] MEDS: PIPER-TAZO 3.375 GM IV (PMX) 100 ML IVPB ×3 (02:10→17:16)
[2018-06-08] MEDS: D5W-0.45 NACL + KCL 10 MEQ 1,000 ML IV ×4 (02:11→23:32)
[2018-06-08] MEDS: HYDROCODONE/APAP (5/325) TAB PO ×2 (02:17→21:20)
[2018-06-08] MEDS: PANTOPRAZOLE (EC) 40 MG TAB PO ×2 (05:03→17:16)
[2018-06-08] MEDS: LEVOTHYROXINE 75 MCG TAB PO (05:03)
[2018-06-08 06:31] LABS: ADD MAN DIFF? NO
[2018-06-08 06:34] LABS: WHITE BLOOD COUNT 6.2 10^3/ul (4.8-10.8)
[2018-06-08 06:34] LABS: BASOPHILS % 0.6 % (0.0-2.0); EOSINOPHILS # 0.2 10^3/ul (0.0-0.5); EOSINOPHILS % 3.1 % (0.0-7.0); HEMATOCRIT 28.5 % (37.0-47.0); LYMPHOCYTES # 1.2 10^3/ul (0.8-2.9); LYMPHOCYTES % 18.8 % (15.0-51.0); MEAN CORPUSCULAR HEMOGLOBIN 28.5 pg (29.0-33.0); MEAN CORPUSCULAR HGB CONC 31.6 g/dl (32.0-37.0); MEAN CORPUSCULAR VOLUME 90.2 fl (82.0-101.0); MEAN PLATELET VOLUME 10.8 fl (7.4-10.4); MONOCYTE # 0.7 10^3/ul (0.3-0.9); MONOCYTES % 10.5 % (0.0-11.0); NEUTROPHIL # 4.1 10^3/ul (1.6-7.5); NEUTROPHILS % 66.7 % (39.0-77.0); PLATELET COUNT 211 10^3/UL (140-415); RED BLOOD COUNT 3.16 10^6/ul (4.20-5.40); RED CELL DISTRIBUTION WIDTH 17.1 % (11.5-14.5)
[2018-06-08 07:06] LABS: ANION GAP 7 (5-13); BLOOD UREA NITROGEN 17 mg/dl (7-20); CALCIUM 8.4 mg/dl (8.4-10.2); CARBON DIOXIDE 30 mmol/L (21-31); CHLORIDE 99 mmol/L (97-110); CREATININE 0.59 mg/dl (0.44-1.00); GLUCOSE 115 mg/dl (70-220); PHOSPHORUS 3.2 mg/dl (2.5-4.9); POTASSIUM 3.5 mmol/L (3.5-5.1); SODIUM 136 mmol/L (135-144)
[2018-06-08] MEDS: INSULIN ASPART [NOVOLOG] 3 ML PEN SC ×4 (07:54→20:41)
[2018-06-08] MEDS: ASPIRIN 325 MG TAB PO (08:22)
[2018-06-08] MEDS: AMLODIPINE 10 MG TAB PO (08:24)
[2018-06-08] MEDS: FUROSEMIDE 40 MG INJ IV (08:24)
[2018-06-08] MEDS: FERROUS SULFATE (EC) 325 MG TAB PO (08:24)
[2018-06-08] MEDS: CLOPIDOGREL 75 MG TAB PO (08:25)
[2018-06-08] MEDS: BALSAM PERU/CASTOR OIL 60 GM TUBE TOP ×2 (08:25→20:31)
[2018-06-08] MEDS ORDERED: PENDING SANTYL ORDER FOR WOUND CARE XX (14:00)
[2018-06-08] MEDS: COLLAGENASE 5 GM (UD JAR) TOP ×2 (17:18→20:31)
[2018-06-08] MEDS: GABAPENTIN 100 MG CAP PO (20:31)
[2018-06-08] MEDS: LATANOPROST 0.005% 2.5 ML OPH BOTH EYES (20:31)
[2018-06-09] MEDS: ACCU-CHEK XX (01:24)
[2018-06-09] MEDS: ACETYLCYSTEINE 20% 4 ML VIAL NEB ×4 (01:45→19:16)
[2018-06-09] MEDS: ALBUTEROL/IPRATROPIUM (NEB) 3 ML AMP HHN ×4 (01:45→19:16)
[2018-06-09] MEDS: PIPER-TAZO 3.375 GM IV (PMX) 100 ML IVPB ×2 (02:15→09:53)
[2018-06-09] MEDS: LEVOTHYROXINE 75 MCG TAB PO (05:47)
[2018-06-09] MEDS: PANTOPRAZOLE (EC) 40 MG TAB PO ×2 (05:47→17:18)
[2018-06-09] MEDS: D5W-0.45 NACL + KCL 10 MEQ 1,000 ML IV ×2 (07:00→20:40)
[2018-06-09 07:17] LABS: ADD MAN DIFF? NO
[2018-06-09 07:23] LABS: WHITE BLOOD COUNT 5.3 10^3/ul (4.8-10.8)
[2018-06-09 07:23] LABS: BASOPHIL # 0.1 10^3/ul (0.0-0.1); EOSINOPHILS # 0.3 10^3/ul (0.0-0.5); EOSINOPHILS % 4.8 % (0.0-7.0); HEMATOCRIT 29.5 % (37.0-47.0); HEMOGLOBIN 9.2 g/dl (12.0-16.0); LYMPHOCYTES # 1.4 10^3/ul (0.8-2.9); LYMPHOCYTES % 27.4 % (15.0-51.0); MEAN CORPUSCULAR HEMOGLOBIN 28.3 pg (29.0-33.0); MEAN CORPUSCULAR HGB CONC 31.2 g/dl (32.0-37.0); MEAN CORPUSCULAR VOLUME 90.8 fl (82.0-101.0); MEAN PLATELET VOLUME 10.6 fl (7.4-10.4); MONOCYTE # 0.5 10^3/ul (0.3-0.9); MONOCYTES % 10.3 % (0.0-11.0); NEUTROPHILS % 56.1 % (39.0-77.0); PLATELET COUNT 226 10^3/UL (140-415); RED BLOOD COUNT 3.25 10^6/ul (4.20-5.40); RED CELL DISTRIBUTION WIDTH 17.2 % (11.5-14.5)
[2018-06-09] MEDS: FUROSEMIDE 40 MG INJ IV (08:00)
[2018-06-09] MEDS: ASPIRIN 325 MG TAB PO (08:01)
[2018-06-09] MEDS: CLOPIDOGREL 75 MG TAB PO (08:01)
[2018-06-09] MEDS: AMLODIPINE 10 MG TAB PO (08:01)
[2018-06-09] MEDS: FERROUS SULFATE (EC) 325 MG TAB PO (08:01)
[2018-06-09] MEDS: BALSAM PERU/CASTOR OIL 60 GM TUBE TOP ×2 (08:02→20:39)
[2018-06-09 08:17] LABS: ANION GAP 6 (5-13); BLOOD UREA NITROGEN 14 mg/dl (7-20); CALCIUM 8.3 mg/dl (8.4-10.2); CARBON DIOXIDE 29 mmol/L (21-31); CHLORIDE 101 mmol/L (97-110); CREATININE 0.67 mg/dl (0.44-1.00); GLUCOSE 101 mg/dl (70-220); PHOSPHORUS 3.1 mg/dl (2.5-4.9); POTASSIUM 3.7 mmol/L (3.5-5.1); SODIUM 136 mmol/L (135-144)
[2018-06-09] MEDS: INSULIN ASPART [NOVOLOG] 3 ML PEN SC ×4 (08:19→20:31)
[2018-06-09] MEDS: HYDROCODONE/APAP (5/325) TAB PO ×2 (08:21→20:27)
[2018-06-09] MEDS: COLLAGENASE 5 GM (UD JAR) TOP (09:44)
[2018-06-09] MEDS: GABAPENTIN 100 MG CAP PO (20:27)
[2018-06-09] MEDS: LATANOPROST 0.005% 2.5 ML OPH BOTH EYES (20:29)
[2018-06-09] MEDS: morphine LIQ (10 MG/5 ML) CUP PO (23:37)
[2018-06-10] MEDS: ALBUTEROL/IPRATROPIUM (NEB) 3 ML AMP HHN ×3 (01:17→14:59)
[2018-06-10] MEDS: ACETYLCYSTEINE 20% 4 ML VIAL NEB ×3 (01:17→14:59)
[2018-06-10] MEDS: ACCU-CHEK XX (02:00)
[2018-06-10] MEDS: hydrALAzine 20 MG INJ IV ×2 (03:21→19:31)
[2018-06-10] MEDS: LEVOTHYROXINE 75 MCG TAB PO (06:27)
[2018-06-10] MEDS: PANTOPRAZOLE (EC) 40 MG TAB PO ×2 (06:27→18:43)
[2018-06-10 06:28] LABS: WHITE BLOOD COUNT 6.7 10^3/ul (4.8-10.8)
[2018-06-10 06:28] LABS: ADD MAN DIFF? NO; BASOPHILS % 0.6 % (0.0-2.0); EOSINOPHILS # 0.3 10^3/ul (0.0-0.5); EOSINOPHILS % 3.9 % (0.0-7.0); HEMATOCRIT 27.5 % (37.0-47.0); HEMOGLOBIN 8.8 g/dl (12.0-16.0); LYMPHOCYTES # 1.4 10^3/ul (0.8-2.9); LYMPHOCYTES % 20.1 % (15.0-51.0); MEAN CORPUSCULAR HEMOGLOBIN 28.3 pg (29.0-33.0); MEAN CORPUSCULAR VOLUME 88.4 fl (82.0-101.0); MEAN PLATELET VOLUME 10.3 fl (7.4-10.4); MONOCYTE # 0.7 10^3/ul (0.3-0.9); MONOCYTES % 9.9 % (0.0-11.0); NEUTROPHIL # 4.4 10^3/ul (1.6-7.5); NEUTROPHILS % 65.2 % (39.0-77.0); PLATELET COUNT 246 10^3/UL (140-415); RED BLOOD COUNT 3.11 10^6/ul (4.20-5.40)
[2018-06-10 06:40] LABS: ANION GAP 4 (5-13); BLOOD UREA NITROGEN 22 mg/dl (7-20); CALCIUM 8.3 mg/dl (8.4-10.2); CARBON DIOXIDE 30 mmol/L (21-31); CHLORIDE 100 mmol/L (97-110); CREATININE 0.59 mg/dl (0.44-1.00); GLUCOSE 144 mg/dl (70-220); PHOSPHORUS 2.4 mg/dl (2.5-4.9); POTASSIUM 3.6 mmol/L (3.5-5.1); SODIUM 134 mmol/L (135-144)
[2018-06-10] MEDS: INSULIN ASPART [NOVOLOG] 3 ML PEN SC ×4 (08:27→20:34)
[2018-06-10] MEDS: CLOPIDOGREL 75 MG TAB PO (08:29)
[2018-06-10] MEDS: FUROSEMIDE 40 MG INJ IV (08:29)
[2018-06-10] MEDS: ASPIRIN 325 MG TAB PO (08:29)
[2018-06-10] MEDS: COLLAGENASE 5 GM (UD JAR) TOP (08:29)
[2018-06-10] MEDS: FERROUS SULFATE (EC) 325 MG TAB PO (08:30)
[2018-06-10] MEDS: AMLODIPINE 10 MG TAB PO (08:30)
[2018-06-10] MEDS: BALSAM PERU/CASTOR OIL 60 GM TUBE TOP ×2 (08:31→20:35)
[2018-06-10] MEDS: D5W-0.45 NACL + KCL 10 MEQ 1,000 ML IV (09:35)
[2018-06-10] MEDS ORDERED: VITAMIN A & D 5 GM OINT PACKET TOP (12:15)
[2018-06-10] MEDS: POTASSIUM PHOSPHATE 15 MM in SOD CHLORIDE 0.9% 250 ML IVPB (12:41)
[2018-06-10] MEDS: morphine LIQ (10 MG/5 ML) CUP PO ×2 (14:51→20:35)
[2018-06-10] MEDS: GABAPENTIN 100 MG CAP PO (20:32)
[2018-06-10] MEDS: LATANOPROST 0.005% 2.5 ML OPH BOTH EYES (20:33)
== END 2018-06-10 20:55 | DRG 853 ==
LOC: E/R 16:44 → TEL 21:19
PROC: 0QBM0ZZ Excision of Left Tarsal, Open Approach (ICD-10-PCS; principal; 2018-05-26 16:00)
PROC: 0DB98ZX Excision of Duodenum, Via Natural or Artificial Opening Endoscopic, Diagnostic (ICD-10-PCS; 2018-05-26 16:00)
PROC: 0W9B3ZZ Drainage of Left Pleural Cavity, Percutaneous Approach (ICD-10-PCS; 2018-05-26 16:00)
PROC: 0W993ZZ Drainage of Right Pleural Cavity, Percutaneous Approach (ICD-10-PCS; 2018-05-26 16:00)
PROC: 30233N1 Transfusion of Nonautologous Red Blood Cells into Peripheral Vein, Percutaneous Approach (ICD-10-PCS; 2018-05-26 16:00)
DX: A41.9 Sepsis, unspecified organism (principal); G92 Toxic encephalopathy; L89.153 Pressure ulcer of sacral region, stage 3; J69.0 Pneumonitis due to inhalation of food and vomit; N39.0 Urinary tract infection, site not specified; E87.2 Acidosis; E44.0 Moderate protein-calorie malnutrition; Z68.1 Body mass index [BMI] 19.9 or less, adult; I69.351 Hemiplegia and hemiparesis following cerebral infarction affecting right dominant side; L97.319 Non-pressure chronic ulcer of right ankle with unspecified severity; E11.52 Type 2 diabetes mellitus with diabetic peripheral angiopathy with gangrene; I42.9 Cardiomyopathy, unspecified; J90 Pleural effusion, not elsewhere classified; L89.151 Pressure ulcer of sacral region, stage 1; E86.0 Dehydration; I25.10 Atherosclerotic heart disease of native coronary artery without angina pectoris; E03.9 Hypothyroidism, unspecified; Z66 Do not resuscitate; Z87.891 Personal history of nicotine dependence; D50.9 Iron deficiency anemia, unspecified; K44.9 Diaphragmatic hernia without obstruction or gangrene; Z87.11 Personal history of peptic ulcer disease; Z87.19 Personal history of other diseases of the digestive system; Z89.432 Acquired absence of left foot; R62.7 Adult failure to thrive
CPT/HCPCS: 32555; 36415; 36430; 36600; 70450; 70552; 71045; 80048; 80053; 80061; 80202; 81001; 82270; 82550; 82553; 82728; 82803; 82945; 82962; 83036; 83540; 83605; 83615; 83690; 83735; 84100; 84157; 84484; 85014; 85018; 85025; 85610; 85730; 86850; 86900; 86901; 86920; 87040; 87070; 87086; 87102; 87116; 88104; 88305; 89051; 92526; 92610; 93005; 94640; 94664; 94667; 94668; 94760; 95819; 96365; 96375; 97605; 99291-25